=== PATIENT | female | born 1960 | race Hispanic/Latino ===

== ENCOUNTER 2019-03-13 18:28 | Inpatient (IN) | payer MEDICARE ==
[~2019-03-13] VITALS: Ht 152.4 cm; Wt 72.7 kg
[2019-03-13 18:54] VITALS: BP 138/89
[2019-03-13] MEDS ORDERED: TYLENOL PO STA (19:25)
[2019-03-13] MEDS ORDERED: MORPHINE SULFATE IV STA (19:25)
[2019-03-13] MEDS ORDERED: TYLENOL PO ONE (19:34)
[2019-03-13] MEDS ORDERED: NS 1000ML 1,000 ML ONE ×2 (19:34→22:01)
[2019-03-13] MEDS ORDERED: MORPHINE SULFATE ONE (19:35)
--- NOTE | 2019-03-13 19:35 | ER.PDOC ---
General Chief Complaint: Requesting Medical Care Stated Complaint: ALOC (POSSIBLE OVERDOSE) Time seen by MD: 19:31 Source: patient, family Exam Limitations: no limitations History of Present Illness Initial Comments AMS for 2-3 days, family thinks she might have overdosed on her medications. Character of AMS: confused (occasionally) Usually: orientedx3 Decreased Ability to Stand: weak Associated Symptoms: other (chronic left hip pain) Allergies: Coded Allergies: No Known Allergies (Unverified , 09/26/15) Home Meds Unable to Obtain Active Prescriptions or Reported Meds Past Medical History Medical History: cancer, diabetes, fibromyalgia, high cholesterol, hypertension, thyroid disease, other (chronic Migraine) Surgical History: other Social History Alcohol Use: none Drug Use: none Review of Systems Constitutional: no symptoms reported Respiratory: no symptoms reported Cardiovascular: no symptoms reported Gastrointestinal: no symptoms reported Genitourinary: no symptoms reported Musculoskeletal: see HPI Psychiatric/Neurological: see HPI All Other Systems: Reviewed and Negative Physical Exam General Appearance: alert, no distress HEENT: no apparent trauma Neuro/Psych: oriented x3, nml speech/cognition, nml mood/affect Cranial Nerves: nml as tested Peripheral Exam: motor nml, sensation nml, reflexes nml Neck: supple, non-tender, no carotid bruit Respiratory: no resp distress, breath sounds nml CVS: reg rate & rhythm, heart sounds nml Abdomen: non-tender, no organomegaly, no distention Skin: color nml, no rash, warm/dry Extremities: non-tender, nml ROM, no pedal edema Results/Orders Results/Orders Orders - GARRETT HIRSCH MD Cbc With Auto Diff (03/13/19:25) Comprehensive Metabolic Panel (03/13/19:25) Creatine Kinase (03/13/19:25) PT (03/13/19:25) Partial Thromboplastin Time. (03/13/19:25) Xr Chest 1v (03/13/19:) Ct Head Wo Contrast (03/13/19:25) Urinalysis (03/13/19:25) Ekg-Routine (03/13/19:) Troponin I (03/13/19:25) Arterial Blood Gas (03/13/19:) Lactic Acid(Ml) (03/13/19 19:25) Drug Screen Medical(Ml) (03/13/19 19:25) Influenza A&B (03/13/19 19:25) Acetaminophen (Tylenol) (03/13/19 19:25) Morphine Sulfate (Morphine Sulfate) (03/13/19 19:25) Blood Culture (03/13/19 19:25) Thyroid Stimulating Horm(Ml) (03/13/19 19:34) 0.9 % Sodium Chloride (Ns 1000ml) (03/13/19 19:34) Acetaminophen (Tylenol) (03/13/19 19:34) Morphine Sulfate (Morphine Sulfate) (03/13/19 19:35) 0.9 % Sodium Chloride (Ns 1000ml) (03/13/19 20:03) Urine Culture (03/13/19 19:42) 0.9 % Sodium Chloride (Ns 1000ml) (03/13/19 22:01) Cefepime Hcl (Maxipime) (03/13/19 22:03) Vital Signs Date Time Temp Pulse Resp B/P (MAP) Pulse Ox O2 Delivery O2 Flow Rate FiO2 03/13/19 18:54 100.6 113 18 93 03/13/19 18:54 100.6 113 18 138/89 (105) 93 Room Air Administered Medications Medications (Trade) Dose Ordered Sig/Ezra Route PRN Reason Start Time Stop Time Status Last Admin Dose Admin Acetaminophen (Tylenol) 1,000 mg STAT STAT PO 03/13/19 19:25 03/13/19 19:32 DC 03/13/19 20:02 1,000 MG Morphine Sulfate (Morphine Sulfate) 4 mg STAT STAT IV 03/13/19 19:25 03/13/19 19:32 DC 03/13/19 20:01 4 MG Sodium Chloride 2,150 ml @ 1,075 mls/hr OT STAT IV 03/13/19 20:03 03/13/19 22:02 DC 03/13/19 20:04 1,075 MLS/HR Laboratory Tests Test 03/13/19 19:10 03/13/19 19:42 03/13/19 19:58 03/13/19 20:00 White Blood Count 10.1 10^3/uL (4.5-11.0) Red Blood Count 4.50 10^6/uL (4.00-5.20) Hemoglobin 14.3 g/dL (12.0-15.0) Hematocrit 41.0 % (36.0-46.0) Mean Corpuscular Volume 91.1 fL (78-100) Mean Corpuscular Hemoglobin 31.8 pg (26-34) Mean Corpuscular Hemoglobin Concent 34.9 g/dL (33-37) Red Cell Distribution Width 13.0 % (11.5-14.5) Platelet Count 276 10^3/uL (150-400) Mean Platelet Volume 10.4 fL (7.8-11.0) Neutrophils (%) (Auto) 70.1 % (41.0-85.0) Lymphocytes (%) (Auto) 22.7 % (24.0-44.0) L Monocytes (%) (Auto) 5.6 % (5.0-12.0) Neutrophils # (Auto) 7.1 10^3/uL (1.8-7.7) Lymphocytes # (Auto) 2.3 10^3/uL (1.0-4.8) Monocytes # (Auto) 0.6 10^3/uL (0.3-0.8) Absolute Immature Granulocyte (auto 0.03 10^3 u/L (0-2) Absolute Eosinophils (auto) 0.1 10^3/uL (0.0-0.2) Immature Granulocytes % 0.30 % (0.00-0.50) Eosinophils % 0.9 % (0.0-5.0) Basophils % 0.4 % (0.0-0.2) H Basophils # 0.0 10^3/uL (0.0-0.1) Prothrombin Time 10.4 SEC (9.4-11.5) Prothrombin Time INR (Non-Therap) 1.0 Activated Partial Thromboplast Time 24.3 SEC (24.67-30.72) Sodium Level 137 mmol/L (132-145) Potassium Level 4.1 mmol/L (3.6-5.2) Chloride Level 99.0 mmol/L (96-109) Carbon Dioxide Level 32.7 mmol/L (20.0-32) H Anion Gap 9.4 Blood Urea Nitrogen 5 mg/dL (7-18) L Creatinine 0.75 mg/dL (0.59-1.40) Estimated GFR () 96.0 (>/=60) Est GFR (CKD-EPI)(Non-Afr Cameroonian) 79.4 (>/=60) BUN/Creatinine Ratio 6.0 Glucose Level 274 mg/dL (70-110) H Calcium Level 8.7 mg/dL (8.4-10.5) Total Bilirubin 0.3 mg/dL (0.2-1.0) Aspartate Amino Transferase (AST) 25 U/L (0-35) Alanine Aminotransferase (ALT) 20 U/L (12-78) Alkaline Phosphatase 91 U/L (50-136) Total Creatine Kinase 736 U/L (26-192) H Troponin I < 0.02 ng/mL (0.00-0.05) Total Protein 7.4 g/dL (6.4-8.2) Albumin 3.6 g/dL (3.4-5.0) Globulin 3.8 Thyroid Stimulating Hormone (TSH) 7.598 mIU/mL (0.358-3.740) Urine Collection Type CCMS Urine Color YELLOW (YELLOW) Urine Appearance SLIGHTLY CLOUDY (CLEAR) Urine Bilirubin NEGATIVE MG/DL (NEGATIVE) Urine Ketones NEGATIVE (NEGATIVE) Urine Specific [place] 1.015 (1.005-1.035) Urine pH 5 (5.0-6.0) Urine Protein NEGATIVE (NEGATIVE) Urine Urobilinogen NORMAL (NEGATIVE) Urine Nitrate POSITIVE (NEGATIVE) Urine Leukocyte Esterase NEGATIVE (NEGATIVE) Urine Blood NEGATIVE (NEGATIVE) Urine RBC 0-2 RBC/HPF (NONE SEEN) Urine WBC 5-10 WBC/HPF (0-2) H Urine Squamous Epithelial Cells FEW #/HPF (FEW) Urine Renal Epithelial Cells RARE #/HPF (NONE SEEN) Urine Bacteria MANY (NONE SEEN) H Urine Other RARE CLUE CELLS #/HPF Urine Glucose 50 (NEGATIVE) H Urine Opiates Screen NEGATIVE (c/o300ng/mL) Urine Methadone Screen NEGATIVE (c/o300ng/mL) Urine Barbiturates Screen NEGATIVE (c/o200ng/mL) Urine Phencyclidine Screen NEGATIVE (c/o 25ng/mL) Ur Amphetamine/Methamphetamine NEGATIVE (io3274ac/mL) Urine MDMA Screen (Ecstasy) NEGATIVE (c/o300ng/mL) Urine Benzodiazepines Screen PRESUMPTIVE POSITIVE Urine Cocaine Metabolite Screen NEGATIVE (c/o300ng/mL) Ur Tetrahydrocannabinol (THC) Scrn NEGATIVE (c/o 50ng/mL) Influenza Type A Antigen NEGATIVE (NEG) Influenza B Immunofluorescence NEGATIVE (NEG) Blood Gas Sample Site ABG Blood pH 7.394 (7.350-7.450) Blood Gas PCO2 53.3 mmHg (35.0-45.0) H Blood Gas PO2 44.7 mmHg (80.0-100.0) L Blood Gas HCO3 31.8 mmol/L (22.0-26.0) H Blood Gas Base Excess 5.5 mmol/L (-2.0-2.0) H [place] Test POSITIVE Arterial Blood Oxygen Saturation 84.7 % (94.0-97.00) L Deoxyhemoglobin 14.0 % (0.0-5.0) H Carboxyhemoglobin 8.6 % (0.0-3.9) H Methemoglobin 0.1 % (0.00-5.0) Total Hemoglobin 13.8 % (12.0-17.8) Total Oxygen Concentration 15.0 % (13.5-17.5) Blood Gas Temperature 37 FiO2 21 % (20-101) Total Carbon Dioxide 33.5 mmol/L (23-27) H Lactic Acid Level 1.5 mmol/L (0.50-2.00) EKG/XRAY/CT/US EKG: NSR XRAY: chest (No active disease) CT Comments: Nothing acute intracranially Departure Time of Disposition: 22:07 Disposition: 09 ADMITTED INPATIENT Impression: Primary Impression: Respiratory failure with hypoxia Additional Impressions: UTI (urinary tract infection) Rhabdomyolysis COPD (chronic obstructive pulmonary disease) Condition: Stable Referrals: VIDHI GALLO MD (PCP) PRIMARY CARE PROVIDER Scripts Unable to Obtain Active Prescriptions or Reported Meds Comments Admitted to Dr. Patricia Duration or Time Spent with Pa: 60 mins Problem Qualifiers Primary Impression: Respiratory failure with hypoxia Chronicity: acute Qualified Codes: J96.01 - Acute respiratory failure with hypoxia Additional Impressions: UTI (urinary tract infection) Urinary tract infection type: site unspecified Hematuria presence: without hematuria Qualified Codes: N39.0 - Urinary tract infection, site not specified Rhabdomyolysis Rhabdomyolysis type: non-traumatic Qualified Codes: M62.82 - Rhabdomyolysis COPD (chronic obstructive pulmonary disease) COPD type: unspecified COPD Qualified Codes: J44.9 - Chronic obstructive pulmonary disease, unspecified GARRETT HIRSCH MD Mar 13, 2019 19:35
[2019-03-13 19:41] LABS: BASOPHIL % 0.4 % (0.0-0.2); EOSINOPHIL # 0.1 10^3/uL (0.0-0.2); EOSINOPHIL % 0.9 % (0.0-5.0); LYMPHOCYTES # 2.3 10^3/uL (1.0-4.8); LYMPHOCYTES % 22.7 % (24.0-44.0); MEAN CORP HGB 31.8 pg (26-34); MONOCYTES # 0.6 10^3/uL (0.3-0.8); MONOCYTES % 5.6 % (5.0-12.0); NEUTROPHIL # 7.1 10^3/uL (1.8-7.7); NEUTROPHILS % 70.1 % (41.0-85.0)
--- NOTE | 2019-03-13 19:57 | DIREP ---
PROCEDURE:CT HEAD OR BRAIN W/O CONTRAST COMPARISON:[facility], CT, CT-BRAIN WO CONTRAST, 11/27/2012, 11:45 AM. INDICATIONS:AMS TECHNIQUE:CT images were created without intravenous contrast. FINDINGS: VENTRICLES:The ventricles are normal in size and configuration. CEREBRUM:Normal cerebral morphology with appropriate culp white matter differentiation. CEREBELLUM:Negative. BRAINSTEM:Negative. BASAL CISTERNS:Negative. HEMORRHAGE:No MASS LESION:No ACUTE INFARCT:No SKULL:Normal. SINUSES:Normal. OTHER:None CONCLUSION:No acute intracranial abnormality Dictated by: Graeme Pelayo DO on 03/13/2019 at 07:52 PM
[2019-03-13 19:59] LABS: ALANINE AMINOTRANSFERASE(ML) 20 U/L (12-78); ALKALINE PHOSPHATASE 91 U/L (50-136); ASPARTATE AMINO TRANSFERASE 25 U/L (0-35); CALCIUM 8.7 mg/dL (8.4-10.5); CARBON DIOXIDE 32.7 mmol/L (20.0-32); GLUCOSE 274 mg/dL (70-110)
--- NOTE | 2019-03-13 20:02 | DIREP ---
PROCEDURE:CHEST 1 VIEW COMPARISON:[facility], CR, XRAY CHEST SINGLE VW, 12/30/2017, 02:34 PM. INDICATIONS:AMS FINDINGS: LUNGS/PLEURA:No significant pulmonary parenchymal abnormalities. No effusions. VASCULATURE:Normal. Unremarkable pulmonary vasculature. CARDIAC:Normal. No cardiac silhouette abnormality or cardiomegaly. MEDIASTINUM:Normal. No visible mass or adenopathy. BONES:Normal. No fracture or visible bony lesion. OTHER:Negative. CONCLUSION:No acute airspace disease Dictated by: Graeme Pelayo DO on 03/13/2019 at 08:00 PM
[2019-03-13] MEDS ORDERED: NS IV STA (20:03)
--- NOTE | 2019-03-13 20:04 | PCM.EKG ---
[facility] Test Date: 2019-03-13 Test Time: 20:00:21 Pat Name: AGNIESZKA COLLINS Department: Room: 312 Gender: F Knocker Out: MAYITO : 1960 Requested By: GARRETT HIRSCH Order Number: [id number] Reading MD: Garrett HIRSCH Measurements Intervals [place] Rate: 98 P: 46 PA: 166 QRS: -25 QRSD: 70 T: 31 QT: 361 QTc: 461 Interpretive Statements Sinus rhythm Probable left atrial enlargement Inferior infarct, old Consider anterior infarct Compared to ECG 12/30/2017 14:56:34 Myocardial infarct finding now present Electronically Signed On 03-16-2019 23:06:46 [employer] by Garrett HIRSCH Please click the below link to view image of tracing.
[2019-03-13 20:11] LABS: BILIRUBIN,URINE NEGATIVE (NEGATIVE); UROBILINOGEN,URINE NORMAL (NEGATIVE)
[2019-03-13 20:12] LABS: ABG PCO2 53.3 mmHg (35.0-45.0); ABG PH 7.394 (7.350-7.450); BE(B) 5.5 mmol/L (-2.0-2.0); HCO3act 31.8 mmol/L (22.0-26.0); pO2 44.7 mmHg (80.0-100.0)
[2019-03-13 20:26] LABS: APPEARANCE,URINE SLIGHTLY CLOUDY (CLEAR); UA COLOR YELLOW (YELLOW)
--- NOTE | 2019-03-13 21:56 | NUR ---
DR MERCEDES TUCKER ON PHONE WITH DR LONG
[2019-03-13] MEDS ORDERED: NS 100ML 100 ML IV ONE ×2 (22:02→23:31)
[2019-03-13] MEDS ORDERED: MAXIPIME 1 GM in NS 100ML 100 ML IV STA (22:03)
[2019-03-13 22:07] VITALS: BP 106/61
[2019-03-13] MEDS ORDERED: TYLENOL PO PRN (23:30)
[2019-03-14] VITALS (74 sets, daily range): BP systolic 106–180; BP diastolic 21–120
[2019-03-14] MEDS ORDERED: SOLU-MEDROL IV STA
[2019-03-14] MEDS ORDERED: DEXTROSE 50%-WATER SYRINGE IV PRN
[2019-03-14] MEDS ORDERED: LANTUS SQ STA (00:02)
--- NOTE | 2019-03-14 00:15 | PCM.HP ---
History of Present Illness Reason for Visit: AMS History of Present Illness Patient is a 59 F PMH of Lupus, COPD, Hypothyroidism, HTN, DM with Gastroparesis, Chronic Migraines, Fibromyalgia, VALERIE, and Chronic pain who was brought to ER from home for AMS. Patient family felt she was behaving weird and was forgetful today. They were afraid patient had took too many of her medications. Patient is polypharmacy and is over 12 medications at home. Patient is alert and oriented x 3 during my evaluation. She answers questions appropriately. She was found to have severe UTI and she meets Sepsis criteria. Patient was tachycardic and febrile. She was also found to be hypoxic. CXR/ABG reviewed. Patient is in acute on Chronic Hypercapnic respiratory failure. She was started on IVF and IV abx in ER. Blood/Urine cx ordered. Patient denies complaints during my evaluation. No chest pain, no dyspnea (per patient), no nausea, no vomiting, no chills. I reviewed all labs and imaging. I discussed plan of care with patient and she verbalized understanding/agreement. Family present during my evaluation. Past Medical History Cardiac: HTN, Hyperlipidemia Pulmonary: COPD, Other (VALERIE) FULFILLMENT SPECIALIST: Migraine GI: GERD, Other (Gastroparesis) Rheumatologic: Fibromyalgia, Other (Lupus) Endocrine: Diabetes, Hypothyroidism Past Surgical History: Other (Oopherectomy bilaterally 2/2 tubal pregnancies, Nerve stimulator placement followed by removal, thyroidectomy) Past Social History Smoke: <1 pack per day Alcohol: none Drugs: None Lives: with Family Travel Hx EBOLA RISK:Travel to/contact w: No Is pt experiencing any Ebola s: No Review of Systems Constitutional: Fever; No: Chills Eyes: No: Conjunctivae inflammation, Eyelid inflammation ENT: No: Nose discharge, Nose congestion Respiratory: Cough, Wheezing; No: Shortness of breath, SOB with excertion Cardiovascular: No: Chest Pain, Palpitations, Edema, Lt Headedness Gastrointestinal: No: Nausea, Vomiting, Abdominal Pain Genitourinary: No Incontinence, No Retention Musculoskeletal: back pain; No: neck pain Skin: No: Rash, Lesions, Jaundice, Bruising Neurological: No: Weakness, Numbness, Incoordination, Change in speech, Confusion, Seizures Allergies: Coded Allergies: No Known Allergies (Unverified , 09/26/15) Unable to Obtain Active Prescriptions or Reported Meds VTE VTE Risk Score VTE Risk: Score 0-1 = Low Risk (Aggressive mobilization; early ambulation; no VTE prophylaxis required) Score 2: Moderate Risk (Intermittent/Pneumatic Compression Device OR Lovenox/Heparin/Coumadin) Score 3-4: High Risk (Intermittent/Pneumatic Compression Device AND Lovenox/Heparin/Coumadin) Score > or =5: Highest Risk (Intermittent/Pneumatic Compression Device AND Lovenox/Heparin/Coumadin) Exam Vital Signs Vital Signs Date Time Temp Pulse Resp B/P (MAP) Pulse Ox O2 Delivery O2 Flow Rate FiO2 03/13/19 22:07 92 18 106/61 (76) 95 Room Air 03/13/19 18:54 100.6 General Appearance: Alert, Oriented X3, Cooperative, No acute distress HEENT: Atraumatic, PERRLA, EOMI Respiratory: Other (diffuse wheezing, decreased aeration) Cardiovascular: Normal S1, Normal S2, No murmurs Abdominal: Normal bowel sounds, Soft, No tenderness Extremities: No edema, Normal pulses, No tenderness/swelling Skin: No rash, No breakdown, No lesions Neuro: Normal speech, Strength at 5/5 X4 ext, Normal tone, Sensation intact, Cranial nerves 3-12 NL Psych/Mental Status: Mental status NL, Mood NL Assessment/Plan Assessment/Plan Assessment/Plan Patient is a 59 F PMH of Lupus, COPD, Hypothyroidism, HTN, DM with Gastroparesis, Chronic Migraines, Fibromyalgia, VALERIE, and Chronic pain who was brought to ER from home for AMS. Patient History: Patient reports no known family medical history. Plan 1. Urosepsis: patient lactic acid 1.5 but she is chronic retainer of Bicarb 2/2 lung disease so number less dependable. Cont IVF, IV abx. Blood/Urine cx ordered. Monitor urine output. 2. Acute on Chronic Hypercapnic respiratory failure/COPD exacerbation/VALERIE: CPAP @ night, cont o2 support PRN, nebs, IV steroids, IS. CXR reviewed and negative for pneumonia. 3. DM with Gastroparesis: Lantus ordered for expected Hyperglycemia from steroid use and uncontrolled DM. PRN antiemetics. 4. Hypothyroidism: cont Synthroid 5. Chronic Migraines: resume home medications when patient medically stable 6. Lupus: hold home meds 2/2 sepsis 7. HTN: hold ARB 2/2 sepsis. Monitor BP closely 8. Fibromyalgia: cont home meds, Morphine PRN. 9. PPx: PPI, Lovenox YESICA LONG MD Mar 14, 2019 00:15
[2019-03-14] MEDS ORDERED: ZOFRAN 4 MG/2 ML VIAL IV PRN (00:30)
[2019-03-14] MEDS ORDERED: ASPI-667 PO (00:33)
[2019-03-14] MEDS ORDERED: HYDR200T5 PO (00:33)
[2019-03-14] MEDS ORDERED: TEMA30CA PO (00:33)
[2019-03-14] MEDS ORDERED: ROSU20TA2 PO (00:33)
[2019-03-14] MEDS ORDERED: DICL100G29 TP (00:33)
[2019-03-14] MEDS ORDERED: NABU750T PO ×2 (00:33)
[2019-03-14] MEDS ORDERED: METH500T7 PO (00:33)
[2019-03-14] MEDS ORDERED: ONDA4TAB12 PO (00:33)
[2019-03-14] MEDS ORDERED: NALO4SPR NS (00:33)
[2019-03-14] MEDS ORDERED: ESCI20TA PO (00:33)
[2019-03-14] MEDS ORDERED: FLUT16SP (00:33)
[2019-03-14] MEDS ORDERED: METF500T17 PO (00:33)
[2019-03-14] MEDS ORDERED: PREG150C PO (00:33)
[2019-03-14] MEDS ORDERED: FOLI20CA PO (00:33)
[2019-03-14] MEDS ORDERED: LOSA50TA14 PO (00:33)
[2019-03-14] MEDS ORDERED: METH25VI22 IJ (00:33)
[2019-03-14] MEDS ORDERED: PRAM0.255 PO (00:33)
[2019-03-14] MEDS ORDERED: PANT40TA5 PO (00:33)
[2019-03-14] MEDS ORDERED: LIOT25TA4 PO (00:33)
[2019-03-14] MEDS ORDERED: DICY20TA3 PO (00:33)
[2019-03-14] MEDS ORDERED: CLOB50FO TP (00:33)
[2019-03-14] MEDS ORDERED: METO10TA83 PO (00:33)
[2019-03-14] MEDS ORDERED: LOVENOX SQ ONE (00:54)
[2019-03-14] MEDS ORDERED: SOLU-MEDROL ONE ×2 (00:54→05:42)
[2019-03-14] MEDS ORDERED: NS 1000ML/KCL 20MEQ 1,000 ML IV ONE (00:54)
[2019-03-14] MEDS ORDERED: LANTUS SQ ONE (00:55)
[2019-03-14] MEDS: LOVENOX SQ SCH (01:06)
--- NOTE | 2019-03-14 01:08 | NUR ---
TELEPHONE REPORT RECEIVED FROM VANIA HERRING.
--- NOTE | 2019-03-14 01:17 | NUR ---
ARRIVAL: PT ARRIVED FROM ER VIA STRETCHER ACCOMPANIED BY VANIA HERRING AND PT FAMILY MEMBERS. PT ABLE TO AMBULATE FROM ER STRETCHER TO ICU BED WITH STANDBY ASSISTANCE. PT ORIENTED TO ICU ENVIRONMENT WITH UNDERSTANDING AND CONNECTED TO HEART MONITOR, NIBP AND PULSE OX. PT IS ON OXYGEN VIA NASAL CANNULA @ 4LPM. ALL VSS AND WNL. MAXIPIME AND SECOND NS BOLUS INFUSING TO 20G IV SITE IN LT AC. NO SWELLING OR REDNESS NOTED. SITE IS PATENT AND FLUSHES WELL. PT DENIES ANY PAIN OR NEEDS AT THIS TIME. CALL LIGHT AND TABLE WITHIN REACH. BED IN LOW POSITION, LOCKED, HOB ELEVATED AND SIDE RAILS UP X2. WILL CONTINUE TO MONITOR.
[2019-03-14] MEDS: NS 1000ML/KCL 20MEQ 1,000 ML IV SCH ×2 (01:36→13:49)
--- NOTE | 2019-03-14 02:35 | NUR ---
O2 DECREASED TO 2LPM. O2 SATS 97%. WILL CONTINUE TO MONITOR.
[2019-03-14] MEDS ORDERED: DUO 0.5-3(2.5) MG/3 ML IH ONE ×3 (03:06→21:06)
[2019-03-14] MEDS: DUO 0.5-3(2.5) MG/3 ML IH SCH ×4 (03:17→21:10)
--- NOTE | 2019-03-14 03:30 | NUR ---
RT AT BEDSIDE TO PLACE PT ON CPAP
[2019-03-14] MEDS: MORPHINE SULFATE IV PRN ×4 (03:44→20:30)
--- NOTE | 2019-03-14 05:30 | NUR ---
BSC: PT ASSISTED TO AMBULATE TO BSC AND VOIDED 600ML OF YELLOW URINE. PT ASSISTED BACK TO BED. WILL CONTINUE TO MONITOR.
[2019-03-14 05:47] LABS: BASOPHIL % 0.2 % (0.0-0.2); EOSINOPHIL % 0.2 % (0.0-5.0); LYMPHOCYTES # 1.2 10^3/uL (1.0-4.8); LYMPHOCYTES % 12.1 % (24.0-44.0); MEAN CORP HGB 31.9 pg (26-34); MONOCYTES # 0.2 10^3/uL (0.3-0.8); MONOCYTES % 1.9 % (5.0-12.0); NEUTROPHIL # 8.5 10^3/uL (1.8-7.7); NEUTROPHILS % 85.4 % (41.0-85.0); RED CELL DISTRIBUTION WIDTH 12.8 % (11.5-14.5)
[2019-03-14] MEDS: SOLU-MEDROL IV SCH ×3 (05:52→22:29)
[2019-03-14 06:04] LABS: CALCIUM 7.8 mg/dL (8.4-10.5)
--- NOTE | 2019-03-14 06:56 | NUR ---
REPORT TO ONCOMING SHIFT. PT CARE RELINQUISHED.
[2019-03-14] MEDS: HUMULIN R SQ SCH ×4 (07:57→20:33)
[2019-03-14] MEDS: PROTONIX PO SCH (08:02)
[2019-03-14] MEDS ORDERED: METF10007 PO (09:26)
--- NOTE | 2019-03-14 09:33 | PRM.PN ---
Subjective Subjective Date: Mar 14, 2019 Time: 09:25 Subjective Patient feeling better. Did not require pressor support overnight. Labs reviewed. Transfer to medical floor today. Patient History: Patient reports no known family medical history. VTE VTE Risk Total Score: >5 VTE Risk Score VTE Risk: Score 0-1 = Low Risk (Aggressive mobilization; early ambulation; no VTE prophylaxis required) Score 2: Moderate Risk (Intermittent/Pneumatic Compression Device OR Lovenox/Heparin/Coumadin) Score 3-4: High Risk (Intermittent/Pneumatic Compression Device AND Lovenox/Heparin/Coumadin) Score > or =5: Highest Risk (Intermittent/Pneumatic Compression Device AND Lovenox/Heparin/Coumadin) Review of Systems Allergies: Coded Allergies: No Known Allergies (Unverified , 09/26/15) Scheduled Aspirin (Aspirin), 1 TAB PO DAILY, (Reported) Clobetasol Propionate (Clobetasol Propionate), 50 GM TP PRN, (Reported) Diclofenac Sodium (Diclofenac Sodium), 100 GM TP PRN, (Reported) Dicyclomine Hcl (Dicyclomine Hcl), 20 MG PO DAILY24, (Reported) Escitalopram Oxalate (Escitalopram Oxalate), 1 TAB PO DAILY, (Reported) Fluticasone Propionate (Fluticasone Propionate), 2 SPR NA DAILY, (Reported) Folic Acid (Folic Acid), 20 MG PO DAILY24, (Reported) Hydroxychloroquine Sulfate (Hydroxychloroquine Sulfate), 200 MG PO DAILY24, (Reported) Liothyronine Sodium (Liothyronine Sodium), 25 MCG PO DAILY24, (Reported) Losartan Potassium (Losartan Potassium), 50 MG PO DAILY24, (Reported) Metformin Hcl (Metformin Hcl), 1 TAB PO BID, (Reported) Methocarbamol (Methocarbamol), 500 MG PO PRN, (Reported) Methotrexate Sodium (Methotrexate), 25 MG IJ Q, (Reported) Metoclopramide Hcl (Reglan), 10 MG PO DAILY24, (Reported) Nabumetone (Nabumetone), 750 MG PO BID, (Reported) Nabumetone (Nabumetone), 750 MG PO DAILY24, (Reported) Naloxone HCl (Narcan), 4 MG NS PRN, (Reported) Ondansetron Hcl (Ondansetron Hcl), 4 MG PO Q4, (Reported) Pantoprazole Sodium (Pantoprazole Sodium), 40 MG PO DAILY24, (Reported) Pramipexole Di-Hcl (Mirapex), 0.25 MG PO DAILY24, (Reported) Pregabalin (Lyrica), 150 MG PO DAILY24, (Reported) Rosuvastatin 20MG (Crestor 20MG), 20 MG PO DAILY24, (Reported) Temazepam (Temazepam), 30 MG PO NOCTE, (Reported) Objective Vitals and I/O Vital Sign - Last 24 Hours 03/13/19 03/13/19 03/13/19 03/14/19 18:54 18:54 22:07 01:34 Temp 100.6 100.6 98.8 Pulse 113 113 92 86 Resp 18 18 18 19 B/P (MAP) 138/89 (105) 106/61 (76) 108/28 (54) Pulse Ox 93 93 95 92 O2 Delivery Room Air Room Air 03/14/19 03/14/19 03/14/19 03/14/19 01:34 01:35 01:45 02:00 Pulse 85 82 79 Resp 14 14 17 B/P (MAP) 106/44 (64) 115/46 (69) 116/59 (78) Pulse Ox 96 98 98 O2 Delivery Nasal Cannula O2 Flow Rate 4.00 03/14/19 03/14/19 03/14/19 03/14/19 02:15 02:30 02:46 03:00 Pulse 77 87 82 85 Resp 10 75 10 9 B/P (MAP) 109/61 (77) 116/75 (89) 136/81 (99) 126/67 (86) Pulse Ox 98 100 03/14/19 03/14/19 03/14/19 03/14/19 03:15 03:20 03:23 03:23 Pulse 88 88 88 86 Resp 12 13 13 14 B/P (MAP) 123/71 (88) Pulse Ox 93 92 93 O2 Delivery Nasal Cannula O2 Flow Rate 2.00 03/14/19 03/14/19 03/14/19 03/14/19 03:25 03:30 03:45 04:00 Temp 98.6 Pulse 91 88 92 89 Resp 8 22 14 B/P (MAP) 126/67 (86) 137/80 (99) 136/72 (93) Pulse Ox 94 93 94 O2 Delivery CPAP FiO2 30 03/14/19 03/14/19 03/14/19 03/14/19 04:15 04:22 04:22 04:30 Pulse 85 84 Resp 12 B/P (MAP) 135/74 (94) 136/72 (93) Pulse Ox 95 93 95 O2 Delivery C-Pap 03/14/19 03/14/19 03/14/19 03/14/19 04:45 05:00 05:15 05:30 Pulse 83 85 86 84 Resp 10 B/P (MAP) 130/76 (94) 133/78 (96) 139/79 (99) 139/76 (97) Pulse Ox 95 95 03/14/19 03/14/19 03/14/19 03/14/19 05:45 06:00 06:15 06:30 Pulse 83 94 90 87 Resp 5 12 12 B/P (MAP) 142/82 (102) 131/65 (87) 119/50 (73) 118/57 (77) Pulse Ox 96 95 03/14/19 03/14/19 03/14/19 03/14/19 06:45 07:00 07:15 07:30 Pulse 85 84 85 83 Resp 10 13 9 9 B/P (MAP) 112/59 (76) 114/49 (70) 110/58 (75) 116/49 (71) Pulse Ox 95 95 95 03/14/19 03/14/19 03/14/19 03/14/19 07:45 08:00 08:15 08:18 Temp 98.8 Pulse 83 82 81 Resp 11 12 10 B/P (MAP) 118/57 (77) 130/61 (84) 125/65 (85) Pulse Ox 95 96 O2 Delivery Nasal Cannula O2 Flow Rate 2.00 03/14/19 03/14/19 03/14/19 08:40 08:45 09:00 Pulse 89 89 89 Resp 17 17 17 Pulse Ox 95 95 95 O2 Delivery Nasal Cannula O2 Flow Rate 2.00 Intake and Output 03/13/19 03/13/19 03/14/19 15:00 23:00 07:00 Intake Total 917 ml Output Total 600 ml Balance 317 ml General: Alert, Oriented X3, Cooperative, No acute distress HEENT: Atraumatic, PERRLA, EOMI Neck: Supple, No JVD Lungs: Other (diffuse wheezing, decreased aeration) Heart: Normal S1, Normal S2, No murmurs Abdomen: Normal bowel sounds, Soft, No tenderness Extremities: No edema, Normal pulses, No tenderness/swelling Skin: No rashes, No breakdown, No significant lesion Neuro: Normal speech, Strength at 5/5 X4 ext, Normal tone, Sensation intact, Cranial nerves 3-12 NL Psych/Mental Status: Mental status NL, Mood NL All Results(Lab/Rad) Laboratory Tests Test 03/13/19 19:10 03/13/19 19:42 03/13/19 19:58 03/13/19 20:00 White Blood Count 10.1 10^3/uL Red Blood Count 4.50 10^6/uL Hemoglobin 14.3 g/dL Hematocrit 41.0 % Mean Corpuscular Volume 91.1 fL Mean Corpuscular Hemoglobin 31.8 pg Mean Corpuscular Hemoglobin Concent 34.9 g/dL Red Cell Distribution Width 13.0 % Platelet Count 276 10^3/uL Mean Platelet Volume 10.4 fL Neutrophils (%) (Auto) 70.1 % Lymphocytes (%) (Auto) 22.7 % Monocytes (%) (Auto) 5.6 % Neutrophils # (Auto) 7.1 10^3/uL Lymphocytes # (Auto) 2.3 10^3/uL Monocytes # (Auto) 0.6 10^3/uL Absolute Immature Granulocyte (auto 0.03 10^3 u/L Absolute Eosinophils (auto) 0.1 10^3/uL Immature Granulocytes % 0.30 % Eosinophils % 0.9 % Basophils % 0.4 % Basophils # 0.0 10^3/uL Prothrombin Time 10.4 SEC Prothrombin Time INR (Non-Therap) 1.0 Activated Partial Thromboplast Time 24.3 SEC Sodium Level 137 mmol/L Potassium Level 4.1 mmol/L Chloride Level 99.0 mmol/L Carbon Dioxide Level 32.7 mmol/L Anion Gap 9.4 Blood Urea Nitrogen 5 mg/dL Creatinine 0.75 mg/dL Estimated GFR () 96.0 Est GFR (CKD-EPI)(Non-Afr [place]) 79.4 BUN/Creatinine Ratio 6.0 Glucose Level 274 mg/dL Calcium Level 8.7 mg/dL Total Bilirubin 0.3 mg/dL Aspartate Amino Transf (AST/SGOT) 25 U/L Alanine Aminotransferase (ALT/SGPT) 20 U/L Alkaline Phosphatase 91 U/L Total Creatine Kinase 736 U/L Troponin I < 0.02 ng/mL Total Protein 7.4 g/dL Albumin 3.6 g/dL Globulin 3.8 Thyroid Stimulating Hormone (TSH) 7.598 mIU/mL Urine Collection Type CCMS Urine Color YELLOW Urine Appearance SLIGHTLY CLOUDY Urine Bilirubin NEGATIVE MG/DL Urine Ketones NEGATIVE Urine Specific [place] 1.015 Urine pH 5 Urine Protein NEGATIVE Urine Urobilinogen NORMAL Urine Nitrate POSITIVE Urine Leukocyte Esterase NEGATIVE Urine Blood NEGATIVE Urine RBC 0-2 RBC/HPF Urine WBC 5-10 WBC/HPF Urine Squamous Epithelial Cells FEW #/HPF Urine Renal Epithelial Cells RARE #/HPF Urine Bacteria MANY Urine Other RARE CLUE CELLS #/HPF Urine Glucose 50 Urine Opiates Screen NEGATIVE Urine Methadone Screen NEGATIVE Urine Barbiturates Screen NEGATIVE Urine Phencyclidine Screen NEGATIVE Ur Amphetamine/Methamphetamine NEGATIVE Urine MDMA Screen (Ecstasy) NEGATIVE Urine Benzodiazepines Screen PRESUMPTIVE POSITIVE Urine Cocaine Metabolite Screen NEGATIVE Ur Tetrahydrocannabinol (THC) Scrn NEGATIVE Influenza Type A Antigen NEGATIVE Influenza B Immunofluorescence NEGATIVE Blood Gas Sample Site ABG Blood Gas pH 7.394 Blood Gas PCO2 53.3 mmHg Blood Gas PO2 44.7 mmHg Blood Gas HCO3 31.8 mmol/L Blood Gas Base Excess 5.5 mmol/L [place] Test POSITIVE Arterial Blood Oxygen Saturation 84.7 % Deoxyhemoglobin 14.0 % Carboxyhemoglobin 8.6 % Methemoglobin 0.1 % Total Hemoglobin 13.8 % Total Oxygen Concentration 15.0 % Blood Gas Temperature 37 FiO2 21 % Total Carbon Dioxide 33.5 mmol/L Lactic Acid Level 1.5 mmol/L Test 03/14/19 00:43 03/14/19 02:05 03/14/19 05:02 Bedside Glucose 165 162 White Blood Count 9.9 10^3/uL Red Blood Count 4.01 10^6/uL Hemoglobin 12.8 g/dL Hematocrit 36.8 % Mean Corpuscular Volume 91.8 fL Mean Corpuscular Hemoglobin 31.9 pg Mean Corpuscular Hemoglobin Concent 34.8 g/dL Red Cell Distribution Width 12.8 % Platelet Count 236 10^3/uL Mean Platelet Volume 10.4 fL Neutrophils (%) (Auto) 85.4 % Lymphocytes (%) (Auto) 12.1 % Monocytes (%) (Auto) 1.9 % Neutrophils # (Auto) 8.5 10^3/uL Lymphocytes # (Auto) 1.2 10^3/uL Monocytes # (Auto) 0.2 10^3/uL Absolute Immature Granulocyte (auto 0.02 10^3 u/L Absolute Eosinophils (auto) 0.0 10^3/uL Immature Granulocytes % 0.20 % Eosinophils % 0.2 % Basophils % 0.2 % Basophils # 0.0 10^3/uL Sodium Level 141 mmol/L Potassium Level 4.1 mmol/L Chloride Level 103.0 mmol/L Carbon Dioxide Level 31.0 mmol/L Anion Gap 11.1 Blood Urea Nitrogen 6 mg/dL Creatinine 0.52 mg/dL Estimated GFR () 146.6 Est GFR (CKD-EPI)(Non-Afr [place]) 121.1 BUN/Creatinine Ratio 11.0 Glucose Level 264 mg/dL Calcium Level 7.8 mg/dL Total Bilirubin 0.3 mg/dL Aspartate Amino Transf (AST/SGOT) 20 U/L Alanine Aminotransferase (ALT/SGPT) 19 U/L Alkaline Phosphatase 75 U/L Total Protein 6.6 g/dL Albumin 3.2 g/dL Globulin 3.4 Current Medications Medications (Trade) Dose Ordered Sig/Ezra Route PRN Reason Start Time Stop Time Status Last Admin Dose Admin Acetaminophen (Tylenol) 1,000 mg STAT STAT PO 03/13/19 19:25 03/13/19 19:32 DC 03/13/19 20:02 Morphine Sulfate (Morphine Sulfate) 4 mg STAT STAT IV 03/13/19 19:25 03/13/19 19:32 DC 03/13/19 20:01 Sodium Chloride 1,000 ml @ ud STK-MED ONCE .ROUTE 03/13/19 19:34 03/13/19 19:36 DC Acetaminophen (Tylenol) 500 mg STK-MED ONCE PO 03/13/19 19:34 03/13/19 19:36 DC Morphine Sulfate (Morphine Sulfate) 4 mg STK-MED ONCE .ROUTE 03/13/19 19:35 03/13/19 19:37 DC Sodium Chloride 2,150 ml @ 1,075 mls/hr OT STAT IV 03/13/19 20:03 03/13/19 22:02 DC 03/13/19 20:04 Sodium Chloride 1,000 ml @ ud STK-MED ONCE .ROUTE 03/13/19 22:01 03/13/19 22:03 DC Cefepime HCl 1 gm/ Sodium Chloride 100 ml @ 100 mls/hr STAT STAT IV 03/13/19 22:03 03/13/19 23:02 DC 03/14/19 00:36 Sodium Chloride 100 ml @ ud STK-MED ONCE IV 03/13/19 22:02 03/13/19 22:04 DC Pantoprazole Sodium (Protonix) 40 mg DAILY PO 03/14/19 09:00 04/13/19 08:59 03/14/19 08:02 Acetaminophen (Tylenol) 650 mg Q6HR PRN PO FEVER 03/13/19 23:30 04/12/19 23:29 Morphine Sulfate (Morphine Sulfate) 2 mg Q4H PRN IV PAIN 7 - 10 03/13/19 23:30 04/12/19 23:29 03/14/19 08:39 Sodium Chloride 100 ml @ STK-MED ONCE IV 03/13/19 23:31 03/13/19 23:33 DC Insulin Human Regular (Humulin R) Give 30 minutes before meal ACHS SQ 03/14/19 07:30 04/13/19 07:29 03/14/19 07:57 Dextrose (Dextrose 50%-Water Syringe) 25 ml STAT PRN IV HYPOGLYCEMIA 03/14/19 00:00 04/13/19 00:00 Methylprednisolone Sodium Succinate (Solu-Medrol) 80 mg STAT STAT IV 03/14/19 00:00 03/14/19 03:54 DC 03/14/19 01:04 Methylprednisolone Sodium Succinate (Solu-Medrol) 40 mg Q8HR IV 03/14/19 06:00 04/13/19 05:59 03/14/19 05:52 Insulin Glargine (Lantus) 20 unit STAT STAT SQ 03/14/19 00:02 03/14/19 03:54 DC 03/14/19 01:05 Ondansetron HCl (Zofran 4 Mg/2 ml Vial) 4 mg Q4H PRN IV NAUSEA / VOMITING 03/14/19 00:30 04/13/19 00:29 Potassium Chloride/Sodium Chloride 1,000 ml @ 50 mls/hr Q20H IV 03/14/19 00:30 03/14/19 01:36 Albuterol/ Ipratropium (Duo 0.5-3(2.5) Mg/3 ml) 3 ml RTQ6H IH 03/14/19 00:30 04/13/19 00:29 03/14/19 08:44 Enoxaparin Sodium (Lovenox) 40 mg Q24HRS SQ 03/14/19 00:30 04/13/19 00:29 03/14/19 01:06 Ceftriaxone Sodium 1 gm/ Sodium Chloride 100 ml @ 100 mls/hr BID IV 03/14/19 09:30 04/13/19 09:29 Course Sepsis Screening Results: Posi: POSITIVE Sepsis Qualifier/Stage: SEPSIS RISK Duration or Total Time Spent w: 60 mins Vitals & review Data Vital Sign - Last 24 Hours 03/13/19 03/13/19 03/13/19 03/14/19 18:54 18:54 22:07 01:34 Temp 100.6 100.6 98.8 Pulse 113 113 92 86 Resp 18 18 18 19 B/P (MAP) 138/89 (105) 106/61 (76) 108/28 (54) Pulse Ox 93 93 95 92 O2 Delivery Room Air Room Air 03/14/19 03/14/19 03/14/19 03/14/19 01:34 01:35 01:45 02:00 Pulse 85 82 79 Resp 14 14 17 B/P (MAP) 106/44 (64) 115/46 (69) 116/59 (78) Pulse Ox 96 98 98 O2 Delivery Nasal Cannula O2 Flow Rate 4.00 03/14/19 03/14/19 03/14/19 03/14/19 02:15 02:30 02:46 03:00 Pulse 77 87 82 85 Resp 10 75 10 9 B/P (MAP) 109/61 (77) 116/75 (89) 136/81 (99) 126/67 (86) Pulse Ox 98 100 03/14/19 03/14/19 03/14/19 03/14/19 03:15 03:20 03:23 03:23 Pulse 88 88 88 86 Resp 12 13 13 14 B/P (MAP) 123/71 (88) Pulse Ox 93 92 93 O2 Delivery Nasal Cannula O2 Flow Rate 2.00 03/14/19 03/14/19 03/14/19 03/14/19 03:25 03:30 03:45 04:00 Temp 98.6 Pulse 91 88 92 89 Resp 8 22 14 B/P (MAP) 126/67 (86) 137/80 (99) 136/72 (93) Pulse Ox 94 93 94 O2 Delivery CPAP FiO2 30 03/14/19 03/14/19 03/14/19 03/14/19 04:15 04:22 04:22 04:30 Pulse 85 84 Resp 12 B/P (MAP) 135/74 (94) 136/72 (93) Pulse Ox 95 93 95 O2 Delivery C-Pap 03/14/19 03/14/19 03/14/19 03/14/19 04:45 05:00 05:15 05:30 Pulse 83 85 86 84 Resp 10 B/P (MAP) 130/76 (94) 133/78 (96) 139/79 (99) 139/76 (97) Pulse Ox 95 95 03/14/19 03/14/19 03/14/19 03/14/19 05:45 06:00 06:15 06:30 Pulse 83 94 90 87 Resp 5 12 12 B/P (MAP) 142/82 (102) 131/65 (87) 119/50 (73) 118/57 (77) Pulse Ox 96 95 03/14/19 03/14/19 03/14/19 03/14/19 06:45 07:00 07:15 07:30 Pulse 85 84 85 83 Resp 10 13 9 9 B/P (MAP) 112/59 (76) 114/49 (70) 110/58 (75) 116/49 (71) Pulse Ox 95 95 95 03/14/19 03/14/19 03/14/19 03/14/19 07:45 08:00 08:15 08:18 Temp 98.8 Pulse 83 82 81 Resp 11 12 10 B/P (MAP) 118/57 (77) 130/61 (84) 125/65 (85) Pulse Ox 95 96 O2 Delivery Nasal Cannula O2 Flow Rate 2.00 03/14/19 03/14/19 03/14/19 08:40 08:45 09:00 Pulse 89 89 89 Resp 17 17 17 Pulse Ox 95 95 95 O2 Delivery Nasal Cannula O2 Flow Rate 2.00 Intake and Output 03/13/19 03/13/19 03/14/19 15:00 23:00 07:00 Intake Total 917 ml Output Total 600 ml Balance 317 ml Laboratory Tests Test 03/13/19 19:10 03/13/19 19:42 03/13/19 19:58 03/13/19 20:00 White Blood Count 10.1 10^3/uL Red Blood Count 4.50 10^6/uL Hemoglobin 14.3 g/dL Hematocrit 41.0 % Mean Corpuscular Volume 91.1 fL Mean Corpuscular Hemoglobin 31.8 pg Mean Corpuscular Hemoglobin Concent 34.9 g/dL Red Cell Distribution Width 13.0 % Platelet Count 276 10^3/uL Mean Platelet Volume 10.4 fL Neutrophils (%) (Auto) 70.1 % Lymphocytes (%) (Auto) 22.7 % Monocytes (%) (Auto) 5.6 % Neutrophils # (Auto) 7.1 10^3/uL Lymphocytes # (Auto) 2.3 10^3/uL Monocytes # (Auto) 0.6 10^3/uL Absolute Immature Granulocyte (auto 0.03 10^3 u/L Absolute Eosinophils (auto) 0.1 10^3/uL Immature Granulocytes % 0.30 % Eosinophils % 0.9 % Basophils % 0.4 % Basophils # 0.0 10^3/uL Prothrombin Time 10.4 SEC Prothrombin Time INR (Non-Therap) 1.0 Activated Partial Thromboplast Time 24.3 SEC Sodium Level 137 mmol/L Potassium Level 4.1 mmol/L Chloride Level 99.0 mmol/L Carbon Dioxide Level 32.7 mmol/L Anion Gap 9.4 Blood Urea Nitrogen 5 mg/dL Creatinine 0.75 mg/dL Estimated GFR () 96.0 Est GFR (CKD-EPI)(Non-Afr [place]) 79.4 BUN/Creatinine Ratio 6.0 Glucose Level 274 mg/dL Calcium Level 8.7 mg/dL Total Bilirubin 0.3 mg/dL Aspartate Amino Transf (AST/SGOT) 25 U/L Alanine Aminotransferase (ALT/SGPT) 20 U/L Alkaline Phosphatase 91 U/L Total Creatine Kinase 736 U/L Troponin I < 0.02 ng/mL Total Protein 7.4 g/dL Albumin 3.6 g/dL Globulin 3.8 Thyroid Stimulating Hormone (TSH) 7.598 mIU/mL Urine Collection Type CCMS Urine Color YELLOW Urine Appearance SLIGHTLY CLOUDY Urine Bilirubin NEGATIVE MG/DL Urine Ketones NEGATIVE Urine Specific [place] 1.015 Urine pH 5 Urine Protein NEGATIVE Urine Urobilinogen NORMAL Urine Nitrate POSITIVE Urine Leukocyte Esterase NEGATIVE Urine Blood NEGATIVE Urine RBC 0-2 RBC/HPF Urine WBC 5-10 WBC/HPF Urine Squamous Epithelial Cells FEW #/HPF Urine Renal Epithelial Cells RARE #/HPF Urine Bacteria MANY Urine Other RARE CLUE CELLS #/HPF Urine Glucose 50 Urine Opiates Screen NEGATIVE Urine Methadone Screen NEGATIVE Urine Barbiturates Screen NEGATIVE Urine Phencyclidine Screen NEGATIVE Ur Amphetamine/Methamphetamine NEGATIVE Urine MDMA Screen (Ecstasy) NEGATIVE Urine Benzodiazepines Screen PRESUMPTIVE POSITIVE Urine Cocaine Metabolite Screen NEGATIVE Ur Tetrahydrocannabinol (THC) Scrn NEGATIVE Influenza Type A Antigen NEGATIVE Influenza B Immunofluorescence NEGATIVE Blood Gas Sample Site ABG Blood Gas pH 7.394 Blood Gas PCO2 53.3 mmHg Blood Gas PO2 44.7 mmHg Blood Gas HCO3 31.8 mmol/L Blood Gas Base Excess 5.5 mmol/L [place] Test POSITIVE Arterial Blood Oxygen Saturation 84.7 % Deoxyhemoglobin 14.0 % Carboxyhemoglobin 8.6 % Methemoglobin 0.1 % Total Hemoglobin 13.8 % Total Oxygen Concentration 15.0 % Blood Gas Temperature 37 FiO2 21 % Total Carbon Dioxide 33.5 mmol/L Lactic Acid Level 1.5 mmol/L Test 03/14/19 00:43 03/14/19 02:05 03/14/19 05:02 Bedside Glucose 165 162 White Blood Count 9.9 10^3/uL Red Blood Count 4.01 10^6/uL Hemoglobin 12.8 g/dL Hematocrit 36.8 % Mean Corpuscular Volume 91.8 fL Mean Corpuscular Hemoglobin 31.9 pg Mean Corpuscular Hemoglobin Concent 34.8 g/dL Red Cell Distribution Width 12.8 % Platelet Count 236 10^3/uL Mean Platelet Volume 10.4 fL Neutrophils (%) (Auto) 85.4 % Lymphocytes (%) (Auto) 12.1 % Monocytes (%) (Auto) 1.9 % Neutrophils # (Auto) 8.5 10^3/uL Lymphocytes # (Auto) 1.2 10^3/uL Monocytes # (Auto) 0.2 10^3/uL Absolute Immature Granulocyte (auto 0.02 10^3 u/L Absolute Eosinophils (auto) 0.0 10^3/uL Immature Granulocytes % 0.20 % Eosinophils % 0.2 % Basophils % 0.2 % Basophils # 0.0 10^3/uL Sodium Level 141 mmol/L Potassium Level 4.1 mmol/L Chloride Level 103.0 mmol/L Carbon Dioxide Level 31.0 mmol/L Anion Gap 11.1 Blood Urea Nitrogen 6 mg/dL Creatinine 0.52 mg/dL Estimated GFR () 146.6 Est GFR (CKD-EPI)(Non-Afr [place]) 121.1 BUN/Creatinine Ratio 11.0 Glucose Level 264 mg/dL Calcium Level 7.8 mg/dL Total Bilirubin 0.3 mg/dL Aspartate Amino Transf (AST/SGOT) 20 U/L Alanine Aminotransferase (ALT/SGPT) 19 U/L Alkaline Phosphatase 75 U/L Total Protein 6.6 g/dL Albumin 3.2 g/dL Globulin 3.4 Current Medications Medications (Trade) Dose Ordered Sig/Ezra PRN Reason Start Time Stop Time Status Last Admin Acetaminophen (Tylenol) 650 mg Q6HR PRN FEVER 03/13/19 23:30 04/12/19 23:29 Albuterol/ Ipratropium (Duo 0.5-3(2.5) Mg/3 ml) 3 ml RTQ6H 03/14/19 00:30 04/13/19 00:29 03/14/19 08:44 Ceftriaxone Sodium 1 gm/ Sodium Chloride 100 ml @ 100 mls/hr BID 03/14/19 09:30 04/13/19 09:29 Dextrose (Dextrose 50%-Water Syringe) 25 ml STAT PRN HYPOGLYCEMIA 03/14/19 00:00 04/13/19 00:00 Enoxaparin Sodium (Lovenox) 40 mg Q24HRS 03/14/19 00:30 04/13/19 00:29 03/14/19 01:06 Insulin Human Regular (Humulin R) Give 30 minutes before meal ACHS 03/14/19 07:30 04/13/19 07:29 03/14/19 07:57 Methylprednisolone Sodium Succinate (Solu-Medrol) 40 mg Q8HR 03/14/19 06:00 04/13/19 05:59 03/14/19 05:52 Morphine Sulfate (Morphine Sulfate) 2 mg Q4H PRN PAIN 7 - 10 03/13/19 23:30 04/12/19 23:29 03/14/19 08:39 Ondansetron HCl (Zofran 4 Mg/2 ml Vial) 4 mg Q4H PRN NAUSEA / VOMITING 03/14/19 00:30 04/13/19 00:29 Pantoprazole Sodium (Protonix) 40 mg DAILY 03/14/19 09:00 04/13/19 08:59 03/14/19 08:02 Potassium Chloride/Sodium Chloride 1,000 ml @ 50 mls/hr Q20H 03/14/19 00:30 03/14/19 01:36 Sepsis Infection Criteria Pres: None LEVEL 1 SEPSIS INFECTION CRITE: ABX Therapy, Urinary Tract Infection LEVEL 2-SIRS (LIST ALL THAT AP: None/Not assessed Cardiovascular Evidence: Not Assessed or None Hematologic Evidence: None/Not assessed Hepatic Evidence: None/Not assessed Metabolic Evidence: None/Not assessed Neurological Evidence: None/Not assessed Respiratory Evidence: Need for O2 to keep>90% Renal Evidence: None/Not assessed O2 Sat by Pulse Oximetry: 95 Oxygen Flow Rate: 2.00 Assessment/Plan Assessment/Plan Assessment/Plan 1. Urosepsis: patient symptoms much improved. Cont IV abx, f/u blood/urine cx. Transfer to medical floor today. 2. Acute on Chronic Hypercapnic respiratory failure/COPD exacerbation/VALERIE: cont CPAP at night. Cont nebs, IV steroids, O2 support PRN. Wean support as tolerated. Will complete O2 challenge prior to d/c. 3. DM with Gastroparesis: cont SSI, IV antiemetics. 4. Hypothyroidism: cont Synthroid 5. Chronic Migraines: resume home medications when patient medically stable 6. Lupus: hold home meds 2/2 sepsis 7. HTN: hold ARB 2/2 sepsis. Monitor BP closely 8. Fibromyalgia: cont home meds, Morphine PRN. 9. PPx: PPI, Lovenox YESICA LONG MD Mar 14, 2019 09:33
[2019-03-14] MEDS ORDERED: METH750T2 PO (09:38)
[2019-03-14] MEDS ORDERED: DICY10CA3 PO (09:38)
[2019-03-14] MEDS ORDERED: HYDR200T72 PO (09:38)
[2019-03-14] MEDS ORDERED: METO10TA PO (09:50)
[2019-03-14] MEDS ORDERED: ONDA8TAB15 PO (09:50)
[2019-03-14] MEDS ORDERED: PREG100C PO (09:50)
[2019-03-14] MEDS ORDERED: PRAM0.125 PO (09:50)
[2019-03-14] MEDS ORDERED: HYDR-2368 PO (09:54)
[2019-03-14] MEDS: ROCEPHIN 1 GM in NS 100ML 100 ML IV SCH ×2 (10:09→20:30)
--- NOTE | 2019-03-14 18:45 | NUR ---
REPORT RECEIVED FROM JOLIE LEÓN RN. ASSUMED PT CARE.
--- NOTE | 2019-03-14 20:48 | NUR ---
OFF UNIT: PT TRANSFERRED OFF UNIT VIA WHEELCHAIR TO [facility] ROOM 312. PT IS STABLE AND DENIES PAIN AT THIS TIME. PT ACCOMPANIED BY FAMILY MEMBERS AND CARRYING ALL PERSONAL BELONGINGS.
--- NOTE | 2019-03-14 20:59 | NUR ---
REPORT TO ZINA ARGUETA. PT CARE RELINQUISHED.
[2019-03-14] MEDS ORDERED: LANTUS SQ SCH (21:00)
[2019-03-15 00:05] VITALS: BP 140/79
[2019-03-15] MEDS: MORPHINE SULFATE IV PRN (00:12)
[2019-03-15] MEDS: LOVENOX SQ SCH (00:13)
[2019-03-15] MEDS: DUO 0.5-3(2.5) MG/3 ML IH SCH ×2 (02:53→09:00)
[2019-03-15 04:30] VITALS: BP 134/70
[2019-03-15] MEDS: SOLU-MEDROL IV SCH (05:43)
[2019-03-15 06:00] LABS: LYMPHOCYTES # 0.9 10^3/uL (1.0-4.8); LYMPHOCYTES % 6.8 % (24.0-44.0); MEAN CORP HGB 31.6 pg (26-34); MONOCYTES # 0.6 10^3/uL (0.3-0.8); MONOCYTES % 4.5 % (5.0-12.0); NEUTROPHIL # 11.4 10^3/uL (1.8-7.7); NEUTROPHILS % 88.3 % (41.0-85.0); RED CELL DISTRIBUTION WIDTH 12.7 % (11.5-14.5)
[2019-03-15 06:13] LABS: CALCIUM 8.7 mg/dL (8.4-10.5); CARBON DIOXIDE 27.1 mmol/L (20.0-32)
[2019-03-15 08:15] VITALS: BP 134/67
[2019-03-15] MEDS: HUMULIN R SQ SCH ×2 (08:22→12:34)
[2019-03-15] MEDS ORDERED: NICOTINE 14MG PATCH TD SCH (09:00)
[2019-03-15 09:24] LABS: DIFFERENTIAL COMMENT NORMAL; LYMPHOCYTE 8 % (25-36); MONOCYTE 2 % (3-9); SEGMENTED NEUTROPHILS 90 % (31-76)
[2019-03-15] MEDS: ROCEPHIN 1 GM in NS 100ML 100 ML IV SCH (09:27)
[2019-03-15] MEDS: PROTONIX PO SCH (09:27)
--- NOTE | 2019-03-15 10:50 | NUR ---
DISCHARGE PLAN CM VISITED WITH PATIENT REGARDING DISCHARGE PLAN AND GOALS. PATIENT LIVES AT HOME WITH HER SPOUSE. SHE IS INDEPENDENT OF ADLS THERE. SHE DOES HAVE A WALKER, CANE AND GLUCOMETER IN PLACE. SHE ALSO HAS CPAP THAT SHE SAID HAS NOT BEEN FUNCTIONING PROPERLY, HER CPAP IS THROUGH [facility]. CM CONTACTED [facility] TO SET UP A TIME FOR A MAILMASTER TO SERVICE HER CPAP. PER ELLIE WITH [facility] PATIENT IN BAD DEBT AND HER ACCOUNT IS INACTIVE. SHE WILL HAVE TO CONTACT [facility] DIRECTLY TO SET UP PAYMENT ARRANGEMENTS TO GET BACK ON SERVICE. HER PCP IS DR GALLO. SHE IS FINANCIALLY ABLE TO PAY FOR MEDICATIONS. SHE IS CURRENTLY ON SERVICE WITH [facility]. DISCHARGE GOAL IS FOR PATIENT TO D/C HOME BACK TO ROUTINE CARE WITH [facility] TO FOLLOW.
--- NOTE | 2019-03-15 12:30 | NUR ---
O2 O2 DC'D O2 SAT 95%
[2019-03-15 12:42] VITALS: BP 137/67
--- NOTE | 2019-03-15 12:42 | NUR ---
O2 SITTING ON EDGE OF BED EATING 02 SAT 95% WITH NO O2, DENIES SOB
--- NOTE | 2019-03-15 13:14 | NUR ---
AMBULATING PT AMBULATING IN [place], STEADY GAIT NOTED, DENIES SOB OR DIZZINESS
[2019-03-15] MEDS ORDERED: PRED20TA PO (13:56)
[2019-03-15] MEDS ORDERED: CEPH-350 PO (13:56)
[2019-03-15] MEDS ORDERED: NICO-449 TD (13:56)
--- NOTE | 2019-03-15 14:03 | PRM.DC ---
Discharge Summary Date of Discharge: Mar 15, 2019 Time of Request to Discharge: 14:50 Reason for Visit: AMS Hospital Course Patient admitted with AMS. Patient was found to be Uroseptic and in COPD exacerbation. Patient treated with IVF, IV abx, nebs, O2 support, and IV steroids. Patient was admitted to ICU first night and did not require BP support. Patient was transferred to the floor and improved slowly. Patient did have Hyperglycemia 2/2 steroid use. Patient blood cx negative. Urine cx returned and reviewed. Patient will be d/c on course of PO abx and short course of PO steroids. Patient was ambulatory without O2 support and did not become hypoxic. Patient will not require Home O2. She will continue her CPAP @ home while sleeping. D/C instructions and return precautions given. F/U with PCP and pain management within 1-2 weeks. Patient History: Patient reports no known family medical history. General: Alert, Oriented X3, Cooperative, No acute distress HEENT: Atraumatic, PERRLA, EOMI, Mucous membr. moist/pink Neck: Supple, No JVD Lungs: Clear to auscultation, Normal air movement Heart: Regular rate, Normal S1, Normal S2, No murmurs Abdomen: Normal bowel sounds, Soft, No tenderness Extremities: No edema, Normal pulses, No tenderness/swelling Skin: No rashes, No breakdown, No significant lesion Neuro: Normal gait, Normal speech, Strength at 5/5 X4 ext, Normal tone, Sensation intact, Cranial nerves 3-12 NL Psych/Mental Status: Mental status NL, Mood NL Scheduled Aspirin (Aspirin), 1 TAB PO DAILY, (Reported) Cephalexin (Keflex), 500 MG PO TID Clobetasol Propionate (Clobetasol Propionate), 50 GM TP PRN, (Reported) Diclofenac Sodium (Diclofenac Sodium), 100 GM TP PRN, (Reported) Dicyclomine Hcl (Dicyclomine Hcl), 20 MG PO QID, (Reported) Escitalopram Oxalate (Escitalopram Oxalate), 1 TAB PO DAILY, (Reported) Fluticasone Propionate (Fluticasone Propionate), 2 SPR NA DAILY, (Reported) Folic Acid (Folic Acid), 20 MG PO DAILY24, (Reported) Hydroxychloroquine Sulfate (Plaquenil), 200 MG PO BID, (Reported) Liothyronine Sodium (Liothyronine Sodium), 25 MCG PO DAILY24, (Reported) Losartan Potassium (Losartan Potassium), 50 MG PO DAILY24, (Reported) Metformin Hcl (Metformin Hcl), 1,000 MG PO BID, (Reported) Methocarbamol (Methocarbamol), 500 MG PO BID, (Reported) Metoclopramide Hcl (Metoclopramide Hcl), 10 MG PO TID, (Reported) Nabumetone (Nabumetone), 750 MG PO BID, (Reported) Naloxone HCl (Narcan), 4 MG NS PRN, (Reported) Nicotine (Nicotine Patch), 1 EACH TD DAILY Ondansetron Hcl (Ondansetron Hcl), 4 MG PO Q8HR, (Reported) Pantoprazole Sodium (Pantoprazole Sodium), 40 MG PO DAILY24, (Reported) Pramipexole Di-Hcl (Mirapex), 0.125 MG PO TID, (Reported) Prednisone (Prednisone), 20 MG PO DAILY24 Pregabalin (Lyrica), 150 MG PO TID, (Reported) Rosuvastatin 20MG (Crestor 20MG), 20 MG PO DAILY24, (Reported) Temazepam (Temazepam), 30 MG PO NOCTE, (Reported) Scheduled PRN Hydrocodone Bit/Acetaminophen (Hydrocodon-Acetaminophn 10-300), 1 TAB PO Q4 PRN for PAIN MODERATE, (Reported) Discontinued Medications Dicyclomine Hcl (Dicyclomine Hcl), 20 MG PO DAILY24, (Reported) Discontinued Reason: Prescription changed Metformin Hcl (Metformin Hcl), 1 TAB PO BID, (Reported) Discontinued Reason: Prescription changed Methocarbamol (Methocarbamol), 500 MG PO PRN, (Reported) Discontinued Reason: Prescription changed Methotrexate Sodium (Methotrexate), 25 MG IJ Q, (Reported) Discontinued Reason: Discontinue Nabumetone (Nabumetone), 750 MG PO DAILY24, (Reported) Discontinued Reason: Discontinue Ondansetron Hcl (Ondansetron Hcl), 4 MG PO Q4, (Reported) Discontinued Reason: Prescription changed Pramipexole Di-Hcl (Mirapex), 0.25 MG PO DAILY24, (Reported) Discontinued Reason: Prescription changed Pregabalin (Lyrica), 150 MG PO DAILY24, (Reported) Discontinued Reason: Prescription changed Sepsis Evaluation @ Discharge Vital Sign - Last 24 Hours 03/13/19 03/13/19 03/13/19 03/14/19 18:54 18:54 22:07 01:34 Temp 100.6 100.6 98.8 Pulse 113 113 92 86 Resp 18 18 18 19 B/P (MAP) 138/89 (105) 106/61 (76) 108/28 (54) Pulse Ox 93 93 95 92 O2 Delivery Room Air Room Air 03/14/19 03/14/19 03/14/19 03/14/19 01:34 01:35 01:45 02:00 Pulse 85 82 79 Resp 14 14 17 B/P (MAP) 106/44 (64) 115/46 (69) 116/59 (78) Pulse Ox 96 98 98 O2 Delivery Nasal Cannula O2 Flow Rate 4.00 03/14/19 03/14/19 03/14/19 03/14/19 02:15 02:30 02:46 03:00 Pulse 77 87 82 85 Resp 10 75 10 9 B/P (MAP) 109/61 (77) 116/75 (89) 136/81 (99) 126/67 (86) Pulse Ox 98 100 03/14/19 03/14/19 03/14/19 03/14/19 03:15 03:20 03:23 03:23 Pulse 88 88 88 86 Resp 12 13 13 14 B/P (MAP) 123/71 (88) Pulse Ox 93 92 93 O2 Delivery Nasal Cannula O2 Flow Rate 2.00 03/14/19 03/14/19 03/14/19 03/14/19 03:25 03:30 03:45 04:00 Temp 98.6 Pulse 91 88 92 89 Resp 8 22 14 B/P (MAP) 126/67 (86) 137/80 (99) 136/72 (93) Pulse Ox 94 93 94 O2 Delivery CPAP FiO2 30 03/14/19 03/14/19 03/14/19 03/14/19 04:15 04:22 04:22 04:30 Pulse 85 84 Resp 12 B/P (MAP) 135/74 (94) 136/72 (93) Pulse Ox 95 93 95 O2 Delivery C-Pap 03/14/19 03/14/19 03/14/19 03/14/19 04:45 05:00 05:15 05:30 Pulse 83 85 86 84 Resp 10 B/P (MAP) 130/76 (94) 133/78 (96) 139/79 (99) 139/76 (97) Pulse Ox 95 95 03/14/19 03/14/19 03/14/19 03/14/19 05:45 06:00 06:15 06:30 Pulse 83 94 90 87 Resp 5 12 12 B/P (MAP) 142/82 (102) 131/65 (87) 119/50 (73) 118/57 (77) Pulse Ox 96 95 03/14/19 03/14/19 03/14/19 03/14/19 06:45 07:00 07:15 07:30 Pulse 85 84 85 83 Resp 10 13 9 9 B/P (MAP) 112/59 (76) 114/49 (70) 110/58 (75) 116/49 (71) Pulse Ox 95 95 95 03/14/19 03/14/19 03/14/19 03/14/19 07:45 08:00 08:15 08:18 Temp 98.8 Pulse 83 82 81 Resp 11 12 10 B/P (MAP) 118/57 (77) 130/61 (84) 125/65 (85) Pulse Ox 95 96 O2 Delivery Nasal Cannula O2 Flow Rate 2.00 03/14/19 03/14/19 03/14/19 08:40 08:45 09:00 Pulse 89 89 89 Resp 17 17 17 Pulse Ox 95 95 95 O2 Delivery Nasal Cannula O2 Flow Rate 2.00 Intake and Output 03/13/19 03/13/19 03/14/19 15:00 23:00 07:00 Intake Total 917 ml Output Total 600 ml Balance 317 ml Laboratory Tests Test 03/13/19 19:10 03/13/19 19:42 03/13/19 19:58 03/13/19 20:00 White Blood Count 10.1 10^3/uL Red Blood Count 4.50 10^6/uL Hemoglobin 14.3 g/dL Hematocrit 41.0 % Mean Corpuscular Volume 91.1 fL Mean Corpuscular Hemoglobin 31.8 pg Mean Corpuscular Hemoglobin Concent 34.9 g/dL Red Cell Distribution Width 13.0 % Platelet Count 276 10^3/uL Mean Platelet Volume 10.4 fL Neutrophils (%) (Auto) 70.1 % Lymphocytes (%) (Auto) 22.7 % Monocytes (%) (Auto) 5.6 % Neutrophils # (Auto) 7.1 10^3/uL Lymphocytes # (Auto) 2.3 10^3/uL Monocytes # (Auto) 0.6 10^3/uL Absolute Immature Granulocyte (auto 0.03 10^3 u/L Absolute Eosinophils (auto) 0.1 10^3/uL Immature Granulocytes % 0.30 % Eosinophils % 0.9 % Basophils % 0.4 % Basophils # 0.0 10^3/uL Prothrombin Time 10.4 SEC Prothrombin Time INR (Non-Therap) 1.0 Activated Partial Thromboplast Time 24.3 SEC Sodium Level 137 mmol/L Potassium Level 4.1 mmol/L Chloride Level 99.0 mmol/L Carbon Dioxide Level 32.7 mmol/L Anion Gap 9.4 Blood Urea Nitrogen 5 mg/dL Creatinine 0.75 mg/dL Estimated GFR () 96.0 Est GFR (CKD-EPI)(Non-Afr Maldivian) 79.4 BUN/Creatinine Ratio 6.0 Glucose Level 274 mg/dL Calcium Level 8.7 mg/dL Total Bilirubin 0.3 mg/dL Aspartate Amino Transf (AST/SGOT) 25 U/L Alanine Aminotransferase (ALT/SGPT) 20 U/L Alkaline Phosphatase 91 U/L Total Creatine Kinase 736 U/L Troponin I < 0.02 ng/mL Total Protein 7.4 g/dL Albumin 3.6 g/dL Globulin 3.8 Thyroid Stimulating Hormone (TSH) 7.598 mIU/mL Urine Collection Type CCMS Urine Color YELLOW Urine Appearance SLIGHTLY CLOUDY Urine Bilirubin NEGATIVE MG/DL Urine Ketones NEGATIVE Urine Specific [place] 1.015 Urine pH 5 Urine Protein NEGATIVE Urine Urobilinogen NORMAL Urine Nitrate POSITIVE Urine Leukocyte Esterase NEGATIVE Urine Blood NEGATIVE Urine RBC 0-2 RBC/HPF Urine WBC 5-10 WBC/HPF Urine Squamous Epithelial Cells FEW #/HPF Urine Renal Epithelial Cells RARE #/HPF Urine Bacteria MANY Urine Other RARE CLUE CELLS #/HPF Urine Glucose 50 Urine Opiates Screen NEGATIVE Urine Methadone Screen NEGATIVE Urine Barbiturates Screen NEGATIVE Urine Phencyclidine Screen NEGATIVE Ur Amphetamine/Methamphetamine NEGATIVE Urine MDMA Screen (Ecstasy) NEGATIVE Urine Benzodiazepines Screen PRESUMPTIVE POSITIVE Urine Cocaine Metabolite Screen NEGATIVE Ur Tetrahydrocannabinol (THC) Scrn NEGATIVE Influenza Type A Antigen NEGATIVE Influenza B Immunofluorescence NEGATIVE Blood Gas Sample Site ABG Blood Gas pH 7.394 Blood Gas PCO2 53.3 mmHg Blood Gas PO2 44.7 mmHg Blood Gas HCO3 31.8 mmol/L Blood Gas Base Excess 5.5 mmol/L [place] Test POSITIVE Arterial Blood Oxygen Saturation 84.7 % Deoxyhemoglobin 14.0 % Carboxyhemoglobin 8.6 % Methemoglobin 0.1 % Total Hemoglobin 13.8 % Total Oxygen Concentration 15.0 % Blood Gas Temperature 37 FiO2 21 % Total Carbon Dioxide 33.5 mmol/L Lactic Acid Level 1.5 mmol/L Test 03/14/19 00:43 03/14/19 02:05 03/14/19 05:02 Bedside Glucose 165 162 White Blood Count 9.9 10^3/uL Red Blood Count 4.01 10^6/uL Hemoglobin 12.8 g/dL Hematocrit 36.8 % Mean Corpuscular Volume 91.8 fL Mean Corpuscular Hemoglobin 31.9 pg Mean Corpuscular Hemoglobin Concent 34.8 g/dL Red Cell Distribution Width 12.8 % Platelet Count 236 10^3/uL Mean Platelet Volume 10.4 fL Neutrophils (%) (Auto) 85.4 % Lymphocytes (%) (Auto) 12.1 % Monocytes (%) (Auto) 1.9 % Neutrophils # (Auto) 8.5 10^3/uL Lymphocytes # (Auto) 1.2 10^3/uL Monocytes # (Auto) 0.2 10^3/uL Absolute Immature Granulocyte (auto 0.02 10^3 u/L Absolute Eosinophils (auto) 0.0 10^3/uL Immature Granulocytes % 0.20 % Eosinophils % 0.2 % Basophils % 0.2 % Basophils # 0.0 10^3/uL Sodium Level 141 mmol/L Potassium Level 4.1 mmol/L Chloride Level 103.0 mmol/L Carbon Dioxide Level 31.0 mmol/L Anion Gap 11.1 Blood Urea Nitrogen 6 mg/dL Creatinine 0.52 mg/dL Estimated GFR () 146.6 Est GFR (CKD-EPI)(Non-Afr Maldivian) 121.1 BUN/Creatinine Ratio 11.0 Glucose Level 264 mg/dL Calcium Level 7.8 mg/dL Total Bilirubin 0.3 mg/dL Aspartate Amino Transf (AST/SGOT) 20 U/L Alanine Aminotransferase (ALT/SGPT) 19 U/L Alkaline Phosphatase 75 U/L Total Protein 6.6 g/dL Albumin 3.2 g/dL Globulin 3.4 Current Medications Medications (Trade) Dose Ordered Sig/Ezra PRN Reason Start Time Stop Time Status Last Admin Acetaminophen (Tylenol) 650 mg Q6HR PRN FEVER 03/13/19 23:30 04/12/19 23:29 Albuterol/ Ipratropium (Duo 0.5-3(2.5) Mg/3 ml) 3 ml RTQ6H 03/14/19 00:30 04/13/19 00:29 03/14/19 08:44 Ceftriaxone Sodium 1 gm/ Sodium Chloride 100 ml @ 100 mls/hr BID 03/14/19 09:30 04/13/19 09:29 Dextrose (Dextrose 50%-Water Syringe) 25 ml STAT PRN HYPOGLYCEMIA 03/14/19 00:00 04/13/19 00:00 Enoxaparin Sodium (Lovenox) 40 mg Q24HRS 03/14/19 00:30 04/13/19 00:29 03/14/19 01:06 Insulin Human Regular (Humulin R) Give 30 minutes before meal ACHS 03/14/19 07:30 04/13/19 07:29 03/14/19 07:57 Methylprednisolone Sodium Succinate (Solu-Medrol) 40 mg Q8HR 03/14/19 06:00 04/13/19 05:59 03/14/19 05:52 Morphine Sulfate (Morphine Sulfate) 2 mg Q4H PRN PAIN 7 - 10 03/13/19 23:30 04/12/19 23:29 03/14/19 08:39 Ondansetron HCl (Zofran 4 Mg/2 ml Vial) 4 mg Q4H PRN NAUSEA / VOMITING 03/14/19 00:30 04/13/19 00:29 Pantoprazole Sodium (Protonix) 40 mg DAILY 03/14/19 09:00 04/13/19 08:59 03/14/19 08:02 Potassium Chloride/Sodium Chloride 1,000 ml @ 50 mls/hr Q20H 03/14/19 00:30 03/14/19 01:36 Course Sepsis Screening Results: Posi: NEGATIVE Sepsis Qualifier/Stage: NO DEFINITE RISK Duration or Total Time Spent w: 60 mins Vitals & review Data Vital Sign - Last 24 Hours 03/13/19 03/13/19 03/13/19 03/14/19 18:54 18:54 22:07 01:34 Temp 100.6 100.6 98.8 Pulse 113 113 92 86 Resp 18 18 18 19 B/P (MAP) 138/89 (105) 106/61 (76) 108/28 (54) Pulse Ox 93 93 95 92 O2 Delivery Room Air Room Air 03/14/19 03/14/19 03/14/19 03/14/19 01:34 01:35 01:45 02:00 Pulse 85 82 79 Resp 14 14 17 B/P (MAP) 106/44 (64) 115/46 (69) 116/59 (78) Pulse Ox 96 98 98 O2 Delivery Nasal Cannula O2 Flow Rate 4.00 03/14/19 03/14/19 03/14/19 03/14/19 02:15 02:30 02:46 03:00 Pulse 77 87 82 85 Resp 10 75 10 9 B/P (MAP) 109/61 (77) 116/75 (89) 136/81 (99) 126/67 (86) Pulse Ox 98 100 03/14/19 03/14/19 03/14/19 03/14/19 03:15 03:20 03:23 03:23 Pulse 88 88 88 86 Resp 12 13 13 14 B/P (MAP) 123/71 (88) Pulse Ox 93 92 93 O2 Delivery Nasal Cannula O2 Flow Rate 2.00 03/14/19 03/14/19 03/14/19 03/14/19 03:25 03:30 03:45 04:00 Temp 98.6 Pulse 91 88 92 89 Resp 8 22 14 B/P (MAP) 126/67 (86) 137/80 (99) 136/72 (93) Pulse Ox 94 93 94 O2 Delivery CPAP FiO2 30 03/14/19 03/14/19 03/14/19 03/14/19 04:15 04:22 04:22 04:30 Pulse 85 84 Resp 12 B/P (MAP) 135/74 (94) 136/72 (93) Pulse Ox 95 93 95 O2 Delivery C-Pap 03/14/19 03/14/19 03/14/19 03/14/19 04:45 05:00 05:15 05:30 Pulse 83 85 86 84 Resp 10 B/P (MAP) 130/76 (94) 133/78 (96) 139/79 (99) 139/76 (97) Pulse Ox 95 95 03/14/19 03/14/19 03/14/19 03/14/19 05:45 06:00 06:15 06:30 Pulse 83 94 90 87 Resp 5 12 12 B/P (MAP) 142/82 (102) 131/65 (87) 119/50 (73) 118/57 (77) Pulse Ox 96 95 03/14/19 03/14/19 03/14/19 03/14/19 06:45 07:00 07:15 07:30 Pulse 85 84 85 83 Resp 10 13 9 9 B/P (MAP) 112/59 (76) 114/49 (70) 110/58 (75) 116/49 (71) Pulse Ox 95 95 95 03/14/19 03/14/19 03/14/19 03/14/19 07:45 08:00 08:15 08:18 Temp 98.8 Pulse 83 82 81 Resp 11 12 10 B/P (MAP) 118/57 (77) 130/61 (84) 125/65 (85) Pulse Ox 95 96 O2 Delivery Nasal Cannula O2 Flow Rate 2.00 03/14/19 03/14/19 03/14/19 08:40 08:45 09:00 Pulse 89 89 89 Resp 17 17 17 Pulse Ox 95 95 95 O2 Delivery Nasal Cannula O2 Flow Rate 2.00 Intake and Output 0 03/13/19 03/13/19 03/14/19 15:00 23:00 07:00 Intake Total 917 ml Output Total 600 ml Balance 317 ml Laboratory Tests Test 03/13/19 19:10 03/13/19 19:42 03/13/19 19:58 03/13/19 20:00 White Blood Count 10.1 10^3/uL Red Blood Count 4.50 10^6/uL Hemoglobin 14.3 g/dL Hematocrit 41.0 % Mean Corpuscular Volume 91.1 fL Mean Corpuscular Hemoglobin 31.8 pg Mean Corpuscular Hemoglobin Concent 34.9 g/dL Red Cell Distribution Width 13.0 % Platelet Count 276 10^3/uL Mean Platelet Volume 10.4 fL Neutrophils (%) (Auto) 70.1 % Lymphocytes (%) (Auto) 22.7 % Monocytes (%) (Auto) 5.6 % Neutrophils # (Auto) 7.1 10^3/uL Lymphocytes # (Auto) 2.3 10^3/uL Monocytes # (Auto) 0.6 10^3/uL Absolute Immature Granulocyte (auto 0.03 10^3 u/L Absolute Eosinophils (auto) 0.1 10^3/uL Immature Granulocytes % 0.30 % Eosinophils % 0.9 % Basophils % 0.4 % Basophils # 0.0 10^3/uL Prothrombin Time 10.4 SEC Prothrombin Time INR (Non-Therap) 1.0 Activated Partial Thromboplast Time 24.3 SEC Sodium Level 137 mmol/L Potassium Level 4.1 mmol/L Chloride Level 99.0 mmol/L Carbon Dioxide Level 32.7 mmol/L Anion Gap 9.4 Blood Urea Nitrogen 5 mg/dL Creatinine 0.75 mg/dL Estimated GFR () 96.0 Est GFR (CKD-EPI)(Non-Afr Maldivian) 79.4 BUN/Creatinine Ratio 6.0 Glucose Level 274 mg/dL Calcium Level 8.7 mg/dL Total Bilirubin 0.3 mg/dL Aspartate Amino Transf (AST/SGOT) 25 U/L Alanine Aminotransferase (ALT/SGPT) 20 U/L Alkaline Phosphatase 91 U/L Total Creatine Kinase 736 U/L Troponin I < 0.02 ng/mL Total Protein 7.4 g/dL Albumin 3.6 g/dL Globulin 3.8 Thyroid Stimulating Hormone (TSH) 7.598 mIU/mL Urine Collection Type CCMS Urine Color YELLOW Urine Appearance SLIGHTLY CLOUDY Urine Bilirubin NEGATIVE MG/DL Urine Ketones NEGATIVE Urine Specific [place] 1.015 Urine pH 5 Urine Protein NEGATIVE Urine Urobilinogen NORMAL Urine Nitrate POSITIVE Urine Leukocyte Esterase NEGATIVE Urine Blood NEGATIVE Urine RBC 0-2 RBC/HPF Urine WBC 5-10 WBC/HPF Urine Squamous Epithelial Cells FEW #/HPF Urine Renal Epithelial Cells RARE #/HPF Urine Bacteria MANY Urine Other RARE CLUE CELLS #/HPF Urine Glucose 50 Urine Opiates Screen NEGATIVE Urine Methadone Screen NEGATIVE Urine Barbiturates Screen NEGATIVE Urine Phencyclidine Screen NEGATIVE Ur Amphetamine/Methamphetamine NEGATIVE Urine MDMA Screen (Ecstasy) NEGATIVE Urine Benzodiazepines Screen PRESUMPTIVE POSITIVE Urine Cocaine Metabolite Screen NEGATIVE Ur Tetrahydrocannabinol (THC) Scrn NEGATIVE Influenza Type A Antigen NEGATIVE Influenza B Immunofluorescence NEGATIVE Blood Gas Sample Site ABG Blood Gas pH 7.394 Blood Gas PCO2 53.3 mmHg Blood Gas PO2 44.7 mmHg Blood Gas HCO3 31.8 mmol/L Blood Gas Base Excess 5.5 mmol/L [place] Test POSITIVE Arterial Blood Oxygen Saturation 84.7 % Deoxyhemoglobin 14.0 % Carboxyhemoglobin 8.6 % Methemoglobin 0.1 % Total Hemoglobin 13.8 % Total Oxygen Concentration 15.0 % Blood Gas Temperature 37 FiO2 21 % Total Carbon Dioxide 33.5 mmol/L Lactic Acid Level 1.5 mmol/L Test 03/14/19 00:43 03/14/19 02:05 03/14/19 05:02 Bedside Glucose 165 162 White Blood Count 9.9 10^3/uL Red Blood Count 4.01 10^6/uL Hemoglobin 12.8 g/dL Hematocrit 36.8 % Mean Corpuscular Volume 91.8 fL Mean Corpuscular Hemoglobin 31.9 pg Mean Corpuscular Hemoglobin Concent 34.8 g/dL Red Cell Distribution Width 12.8 % Platelet Count 236 10^3/uL Mean Platelet Volume 10.4 fL Neutrophils (%) (Auto) 85.4 % Lymphocytes (%) (Auto) 12.1 % Monocytes (%) (Auto) 1.9 % Neutrophils # (Auto) 8.5 10^3/uL Lymphocytes # (Auto) 1.2 10^3/uL Monocytes # (Auto) 0.2 10^3/uL Absolute Immature Granulocyte (auto 0.02 10^3 u/L Absolute Eosinophils (auto) 0.0 10^3/uL Immature Granulocytes % 0.20 % Eosinophils % 0.2 % Basophils % 0.2 % Basophils # 0.0 10^3/uL Sodium Level 141 mmol/L Potassium Level 4.1 mmol/L Chloride Level 103.0 mmol/L Carbon Dioxide Level 31.0 mmol/L Anion Gap 11.1 Blood Urea Nitrogen 6 mg/dL Creatinine 0.52 mg/dL Estimated GFR () 146.6 Est GFR (CKD-EPI)(Non-Afr Maldivian) 121.1 BUN/Creatinine Ratio 11.0 Glucose Level 264 mg/dL Calcium Level 7.8 mg/dL Total Bilirubin 0.3 mg/dL Aspartate Amino Transf (AST/SGOT) 20 U/L Alanine Aminotransferase (ALT/SGPT) 19 U/L Alkaline Phosphatase 75 U/L Total Protein 6.6 g/dL Albumin 3.2 g/dL Globulin 3.4 Current Medications Medications (Trade) Dose Ordered Sig/Ezra PRN Reason Start Time Stop Time Status Last Admin Acetaminophen (Tylenol) 650 mg Q6HR PRN FEVER 03/13/19 23:30 04/12/19 23:29 Albuterol/ Ipratropium (Duo 0.5-3(2.5) Mg/3 ml) 3 ml RTQ6H 03/14/19 00:30 04/13/19 00:29 03/14/19 08:44 Ceftriaxone Sodium 1 gm/ Sodium Chloride 100 ml @ 100 mls/hr BID 03/14/19 09:30 04/13/19 09:29 Dextrose (Dextrose 50%-Water Syringe) 25 ml STAT PRN HYPOGLYCEMIA 03/14/19 00:00 04/13/19 00:00 Enoxaparin Sodium (Lovenox) 40 mg Q24HRS 03/14/19 00:30 04/13/19 00:29 03/14/19 01:06 Insulin Human Regular (Humulin R) Give 30 minutes before meal ACHS 03/14/19 07:30 04/13/19 07:29 03/14/19 07:57 Methylprednisolone Sodium Succinate (Solu-Medrol) 40 mg Q8HR 03/14/19 06:00 04/13/19 05:59 03/14/19 05:52 Morphine Sulfate (Morphine Sulfate) 2 mg Q4H PRN PAIN 7 - 10 03/13/19 23:30 04/12/19 23:29 03/14/19 08:39 Ondansetron HCl (Zofran 4 Mg/2 ml Vial) 4 mg Q4H PRN NAUSEA / VOMITING 03/14/19 00:30 04/13/19 00:29 Pantoprazole Sodium (Protonix) 40 mg DAILY 03/14/19 09:00 04/13/19 08:59 03/14/19 08:02 Potassium Chloride/Sodium Chloride 1,000 ml @ 50 mls/hr Q20H 03/14/19 00:30 03/14/19 01:36 Sepsis Infection Criteria Pres: None LEVEL 1 SEPSIS INFECTION CRITE: ABX Therapy LEVEL 2-SIRS (LIST ALL THAT AP: None/Not assessed Cardiovascular Evidence: Not Assessed or None Hematologic Evidence: None/Not assessed Hepatic Evidence: None/Not assessed Metabolic Evidence: None/Not assessed Neurological Evidence: None/Not assessed Respiratory Evidence: Need for O2 to keep>90% Renal Evidence: None/Not assessed O2 Sat by Pulse Oximetry: 95 Oxygen Flow Rate: 2.00 Plan Discharge Date: Mar 15, 2019 Dicharge DX: Urosepsis, COPD exacerbation Discharge Disposition: Stable Plan ok to d/c to home self care medications: per med rec list Diet: ADA Activity as tolerated F/U with PCP/Pain specialist in 1-2 weeks Return to care for worsening/concerning symptoms YESICA LONG MD Mar 15, 2019 14:03
[2019-03-15 15:18] VITALS: BP 137/67
--- NOTE | 2019-03-15 15:18 | NUR ---
DISCHARGE SALINE LOCK DC'D, SITE CLEAR, DISCHARGE INSTRUCTIONS GIVEN AND QUESTIONS ANSWERED. VOICED UNDERSTANDING, DECLINED W/C. AMBULATED OFF UNIT ON OWN ACCORD ACCOMPANIED BY THIS NURSE, TO PRIVATE VEHICLE IN APPARENT STABLE CONDITION,
[2019-03-21 21:59] LABS: NORDIAZEPAM NEGATIVE
[2019-03-21 22:00] LABS: OH-ALPRAZOLAM NEGATIVE; OXAZEPAM POSITIVE
== END 2019-03-15 15:18 | disposition home health service (06) | DRG 871 ==
LOC: ER 18:28 → MS 22:10 → ICU 23:59 → MS 03-14 20:48
PROVIDERS: ADMIT Family Medicine; ATTEND Family Medicine
PROC: 5A09357 Assistance with Respiratory Ventilation, Less than 24 Consecutive Hours, Continuous Positive Airway Pressure (ICD-10-PCS; principal; 2019-03-14)
PROC: 5A09357 Assistance with Respiratory Ventilation, Less than 24 Consecutive Hours, Continuous Positive Airway Pressure (ICD-10-PCS; 2019-03-15)
DX: A41.9 Sepsis, unspecified organism (principal); J96.21 Acute and chronic respiratory failure with hypoxia; J96.22 Acute and chronic respiratory failure with hypercapnia; N39.0 Urinary tract infection, site not specified; J44.1 Chronic obstructive pulmonary disease with (acute) exacerbation; E11.43 Type 2 diabetes mellitus with diabetic autonomic (poly)neuropathy; E11.65 Type 2 diabetes mellitus with hyperglycemia; T38.0X5A Adverse effect of glucocorticoids and synthetic analogues, initial encounter; E78.00 Pure hypercholesterolemia, unspecified; E78.5 Hyperlipidemia, unspecified; E89.0 Postprocedural hypothyroidism; F17.210 Nicotine dependence, cigarettes, uncomplicated; G43.909 Migraine, unspecified, not intractable, without status migrainosus; G47.33 Obstructive sleep apnea (adult) (pediatric); G89.29 Other chronic pain; I10 Essential (primary) hypertension; K31.84 Gastroparesis; M79.7 Fibromyalgia; K21.9 Gastro-esophageal reflux disease without esophagitis; M25.552 Pain in left hip; Z79.82 Long term (current) use of aspirin; Y92.89 Other specified places as the place of occurrence of the external cause; Z90.722 Acquired absence of ovaries, bilateral
CPT/HCPCS: 36415; 70450; 71045; 80053; 80307; 81000; 82550; 82803; 82948; 83605; 84443; 84484; 85025; 85610; 85730; 87040; 87077; 87086; 87186; 87804; 93005; 94640; 94660; 99285; G0378; J0696; J1650; J1815; J2270; J2920; J3490; J7030; J7050; J7620; J0692

== ENCOUNTER → 2019-03-30 | Outpatient (CLI) | payer MEDICARE ==
[~2019-03-30] MED LIST: ASPI-667 PO; CEPH-350 PO; CLOB50FO TP; DICL100G29 TP; DICY10CA3 PO; DICY20TA3 PO; ESCI20TA PO; FLUT16SP; FOLI20CA PO; HYDR-2368 PO; HYDR200T5 PO; HYDR200T72 PO; LIOT25TA4 PO; LOSA50TA14 PO; METF10007 PO; METF500T17 PO; METH25VI22 IJ; METH500T7 PO; METH750T2 PO; METO10TA PO; METO10TA83 PO; NABU750T PO; NALO4SPR NS; NICO-449 TD; ONDA-87 PO; ONDA8TAB18 PO; PANT40TA5 PO; PRAM0.125 PO; PRAM0.255 PO; PRED20TA PO; PREG100C PO; PREG150C PO; ROSU20TA2 PO; TEMA30CA PO
[2019-03-30 12:32] LABS: BASOPHIL # 0.1 10^3/uL (0.0-0.1); BASOPHIL % 0.7 % (0.0-0.2); EOSINOPHIL # 0.2 10^3/uL (0.0-0.2); EOSINOPHIL % 2.2 % (0.0-5.0); LYMPHOCYTES # 3.41 10^3/uL1 (1.0-4.8); LYMPHOCYTES % 47.9 % (24.0-44.0); MEAN CORP HGB 31.6 pg (26-34); MONOCYTES # 0.6 10^3/uL (0.3-0.8); MONOCYTES % 8.7 % (5.0-12.0); NEUTROPHIL # 2.9 10^3/uL (1.8-7.7); NEUTROPHILS % 40.4 % (41.0-85.0); PLATELET COUNT 203 10^3/uL (150-400); RED CELL DISTRIBUTION WIDTH 12.7 % (11.5-14.5)
[2019-03-30 13:13] LABS: CALCIUM 8.9 mg/dL (8.4-10.5); CARBON DIOXIDE 33.3 mmol/L (20.0-32)
== END | disposition home or self-care (01) ==
LOC: LAB 12:07
PROVIDERS: ATTEND Internal Medicine
DX: E11.40 Type 2 diabetes mellitus with diabetic neuropathy, unspecified (principal); I10 Essential (primary) hypertension
CPT/HCPCS: 36415; 80053; 84443; 85025

== ENCOUNTER → 2019-08-18 | Outpatient (CLI) | payer MEDICARE ==
[2019-08-18 13:00] LABS: BASOPHIL % 0.4 % (0.0-0.2); EOSINOPHIL % 0.4 % (0.0-5.0); LYMPHOCYTES # 1.59 10^3/uL1 (1.0-4.8); LYMPHOCYTES % 14.1 % (24.0-44.0); MEAN CORP HGB 32.1 pg (26-34); MONOCYTES # 0.4 10^3/uL (0.3-0.8); MONOCYTES % 3.3 % (5.0-12.0); NEUTROPHIL # 9.2 10^3/uL (1.8-7.7); NEUTROPHILS % 81.4 % (41.0-85.0); PLATELET COUNT 168 10^3/uL (150-400); RED CELL DISTRIBUTION WIDTH 12.1 % (11.5-14.5)
[2019-08-18 13:37] LABS: CALCIUM 8.9 mg/dL (8.4-10.5); CARBON DIOXIDE 32.2 mmol/L (20.0-32)
--- NOTE | 2019-08-18 16:49 | DIREP ---
PROCEDURE:Digital Screening Mammogram TECHNIQUE:MLO, CC, XCCL, and cleavage digital images of each breast are provided. Computer Assisted Detection (CAD) was utilized. COMPARISON:[facility], , MAMMO BILATERAL SCREENING, 01/17/2016, 02:23 PM. INDICATIONS:SCREENING MAMMO BREAST COMPOSITION:The breasts are almost entirely fatty. FINDINGS:There are no grouped microcalcifications, masses, or architectural distortions to suggest malignancy. There is no significant change as compared with the previous examination(s). IMPRESSION:No mammographic evidence of malignancy. RECOMMENDATIONS:Routine Screening Mammography per [employer] guidelines. OVERALL FINAL ASSESSMENT:BI-RADS 1 - Negative Mammogram Note: This facility participates in a mammography screening patient reminder system. Dictated by: Gael Persaud III, MD on 08/18/2019 at 04:45 PM
[2019-08-19 07:00] LABS: COMPLEMENT C4 34 mg/dL (14-44)
== END | disposition home or self-care (01) ==
LOC: RAD 12:07
PROVIDERS: ATTEND Internal Medicine
DX: Z12.31 Encounter for screening mammogram for malignant neoplasm of breast (principal); I10 Essential (primary) hypertension; N39.0 Urinary tract infection, site not specified; E11.40 Type 2 diabetes mellitus with diabetic neuropathy, unspecified; E03.9 Hypothyroidism, unspecified; M19.91 Primary osteoarthritis, unspecified site
CPT/HCPCS: 36415; 77067; 80053; 80061; 83036; 84443; 85025; 86160; 86162

== ENCOUNTER → 2020-03-28 | Outpatient (CLI) | payer MEDICARE ==
[~2020-03-28] MED LIST changes: -ESCI20TA PO; +ESCI20TA5 PO; -HYDR-2368 PO; -NABU750T PO; +NABU750T7 PO; -PANT40TA5 PO; +PANT40TA6 PO; +[UNRECOGNIZED DRUG - CODE] PO
== END | disposition home or self-care (01) ==
LOC: NPLAB 15:27
PROVIDERS: ATTEND Internal Medicine
DX: R06.02 Shortness of breath (principal); Z20.822 Contact with and (suspected) exposure to COVID-19
CPT/HCPCS: 87426; 87635

== ENCOUNTER → 2020-08-23 | Outpatient (CLI) | payer MEDICARE ==
[~2020-08-23] MED LIST changes: -ESCI20TA5 PO; +ESCI20TA8 PO; +METH-621 PO; +METH-622 PO; -METH500T7 PO; -METH750T2 PO; +NABU750T11 PO; -NABU750T7 PO
== END | disposition home or self-care (01) ==
LOC: NPLAB 08:55
PROVIDERS: ATTEND Internal Medicine
DX: E11.40 Type 2 diabetes mellitus with diabetic neuropathy, unspecified (principal)
CPT/HCPCS: 83036

== ENCOUNTER → 2021-06-20 | Outpatient (CLI) | payer MEDICARE ==
[~2021-06-20] MED LIST changes: +DICY20TA PO; -DICY20TA3 PO; -ONDA8TAB18 PO; +[UNRECOGNIZED DRUG - CODE] PO
[2021-06-20 19:36] LABS: BILIRUBIN,URINE NEGATIVE (NEGATIVE); UROBILINOGEN,URINE 0.2 E.U./dL (0.2)
== END | disposition home or self-care (01) ==
LOC: NPLAB 19:18
PROVIDERS: ATTEND Internal Medicine
DX: N39.0 Urinary tract infection, site not specified (principal)
CPT/HCPCS: 81003

== ENCOUNTER 2021-08-18 13:49 | Emergency (ER) | payer MEDICARE ==
[~2021-08-18] VITALS: Ht 152.4 cm; Wt 63.5 kg
[2021-08-18 13:49] VITALS: BP 137/78
--- NOTE | 2021-08-18 13:49 | NUR ---
ARRIVAL PT PRESENTS TO THE ED VIA AMBULATORY WITH C/O SORE THROAT, COUGH, CONGESTION, AND VOMITING FOR A COUPLE DAYS. PT IS ON HOSPICE FOR HEART FAILURE, PT STATES THE HOSPICE NURSE TOLD HER SHE NEEDED TO COME GET CHECKED OUT. PT VITALS OBTAINED, PT IS STABLE, NOTIFIED OF PT ARRIVAL.
--- NOTE | 2021-08-18 14:08 | ER.PDOC ---
General Chief Complaint: Requesting Medical Care Stated Complaint: ST,COUGH/CONGESTION,SOB,N/V Time seen by MD: 14:08 Source: patient, family Exam Limitations: no limitations History of Present Illness Initial Comments Patient who is on home hospice for congestive heart failure presents with family complaining of generalized weakness, decreased appetite, difficulty and painful swallowing due to sore throat for the past 4 days. At this time denies any chest pain or complaints and in no acute distress. Severity: mild Associated Symptoms: sore throat Allergies: Coded Allergies: No Known Allergies (Unverified , 09/26/15) Home Meds Active Scripts Nicotine (NICOTINE PATCH) 1 Each Patch.td24, 1 EACH TD DAILY for 30 Days, #30 PATCH 0 Refills Prov:YESICA LONG MD 03/15/19 Cephalexin (KEFLEX) 500 Mg Capsule, 500 MG PO TID for 5 Days, #15 TAB 0 Refills Prov:YESICA LONG MD 03/15/19 Prednisone (PREDNISONE) 20 Mg Tablet, 20 MG PO DAILY24 for 3 Days, #3 TAB 0 Refills Prov:YESICA LONG MD 03/15/19 Reported Medications Hydrocodone Bit/Acetaminophen (HYDROCODON-ACETAMINOPHN 10-300) 1 Each Tablet, 1 TAB PO Q4 PRN for PAIN MODERATE MDD 4 Tablet(s) for 30 Days, #180 TAB 0 Refills 03/14/19 Metoclopramide Hcl (METOCLOPRAMIDE HCL) 10 Mg Tablet, 10 MG PO TID, #30 TAB 03/14/19 Pramipexole Di-Hcl (MIRAPEX) 0.125 Mg Tablet, 0.125 MG PO TID, #30 TAB 03/14/19 Pregabalin (LYRICA) 100 Mg Capsule, 150 MG PO TID, CAPSULE 03/14/19 Ondansetron Hcl (ONDANSETRON HCL) 8 Mg Tablet, 4 MG PO Q8HR, #30 TAB 03/14/19 Dicyclomine Hcl (DICYCLOMINE HCL) 10 Mg Capsule, 20 MG PO QID, #30 CAPSULE 03/14/19 Hydroxychloroquine Sulfate (PLAQUENIL) 200 Mg Tablet, 200 MG PO BID, #30 TAB 03/14/19 Methocarbamol (METHOCARBAMOL) 750 Mg Tablet, 500 MG PO BID, #30 TAB 03/14/19 Metformin Hcl (METFORMIN HCL) 1,000 Mg Tablet, 1000 MG PO BID, #30 TAB 03/14/19 Aspirin (ASPIRIN) 81 Mg Tab.chew, 1 TAB PO DAILY, #30 TAB 3 Refills 03/14/19 Fluticasone Propionate (FLUTICASONE PROPIONATE) 16 Gm [place].susp, 2 SPR NA DAILY, #1 INHALER 3 Refills 03/14/19 Clobetasol Propionate (CLOBETASOL PROPIONATE) 50 Gm Foam, 50 GM TP PRN, GM 03/14/19 Diclofenac Sodium (Diclofenac Sodium) 1 % Gel..gram., 100 GM TP PRN, TUBE 03/14/19 Naloxone HCl (Narcan) 4 Mg/Actuation [place], 4 MG NS PRN, SPRAYS 03/14/19 Folic Acid (FOLIC ACID) 20 Mg Capsule, 20 MG PO DAILY24, CAPSULE 03/14/19 Temazepam (TEMAZEPAM) 30 Mg Capsule, 30 MG PO NOCTE, CAPSULE 03/14/19 Rosuvastatin 20MG (CRESTOR 20MG) 20 Mg Tablet, 20 MG PO DAILY24, TAB 03/14/19 Losartan Potassium (LOSARTAN POTASSIUM) 50 Mg Tablet, 50 MG PO DAILY24, TAB 03/14/19 Nabumetone (NABUMETONE) 750 Mg Tablet, 750 MG PO BID, TAB 03/14/19 Escitalopram Oxalate (ESCITALOPRAM OXALATE) 20 Mg Tablet, 1 TAB PO DAILY, #30 TAB 5 Refills 03/14/19 Liothyronine Sodium (LIOTHYRONINE SODIUM) 25 Mcg Tablet, 25 MCG PO DAILY24, TAB 03/14/19 Pantoprazole Sodium (PANTOPRAZOLE SODIUM) 40 Mg Tablet.dr, 40 MG PO DAILY24 03/14/19 Constitutional: denies chills, denies fever; malaise; denies weakness EENTM: denies eye pain, denies blurred vision; nose congestion, throat pain Respiratory: cough; denies shortness of breath; SOB with exertion; denies SOB at rest Cardiovascular: denies chest pain, denies lightheadedness Gastrointestinal: denies abdomen distended, denies abdominal pain, denies nausea, denies vomiting Genitourinary: denies dysuria Musculoskeletal: denies back pain Skin: denies change in color Psychiatric/Neurological: denies headache All Other Systems: Reviewed and Negative Past Medical History Medical History: cancer, diabetes, fibromyalgia, high cholesterol, hypertension, thyroid disease, other Surgical History: other Social History Drug Use: none Physical Exam General Appearance: alert, no distress Eye: eyes nml inspection, lids & conjunct. nml, PERRL, no nystagmus Ear: ear nml Nose: nose nml Throat: airway nml, mouth ulceration (left and right buccal region with slight white pathches), tonsillar edudate (? plaque vs thrush in left side oropharyngeal cavity) Neck: nml inspection, supple Respiratory: no resp.distress, breath sounds nml Abdomen: non-tender, no organomegaly CVS: reg rate & rhythm, heart sounds nml Skin: warm/dry (normal color) Extremities: non-tender, nml ROM, no pedal edema NEURO/PSYCH: oriented x 3, CN's nml as tested, motor nml, sensation nml, mood/affect nml Results/Orders Results/Orders Orders - KIKE DAS MD Covid19 Antigen Clary Sue (08/18/21 14:12) Influenza A&B (08/18/21 14:12) Strep Screen (08/18/21 14:12) Dexamethasone (Decadron) (08/18/21 14:38) Dexamethasone (Decadron) (08/18/21 14:45) Vital Signs Date Time Temp Pulse Resp B/P (MAP) Pulse Ox O2 Delivery O2 Flow Rate FiO2 08/18/21 13:49 99.2 96 16 95 08/18/21 13:49 99.2 96 16 137/78 (97) 95 Room Air* 0 21 08/18/21 13:49 99.2 96 16 Administered Medications Medications (Trade) Dose Ordered Sig/Ezra Route PRN Reason Start Time Stop Time Status Last Admin Dose Admin Dexamethasone (Decadron) 6 mg STAT STAT PO 08/18/21 14:38 08/18/21 14:41 DC 08/18/21 14:47 6 MG Laboratory Tests Test 08/18/21 14:03 Influenza Type A Antigen NEGATIVE (NEG) Influenza Type B Antigen NEGATIVE (NEG) SARS-CoV-2 Antigen (Rapid) POSITIVE (NEGATIVE) *A Group A Streptococcus Screen NEGATIVE (NEGATIVE) Progress Progress Patient with COVID on home hospice with no supplemental oxygen requirement, afebrile, SaO2 98% on room air we will manage patient as an outpatient. We will advise her to continue with Zithromax prescribed to her on 08/15/2021. Take Vitamins C 1000mg by mouth 3 times daily for 7 days. Zinc 50mg tablets daily for 7 days. Continue Zithromax as prescribed. Phototherapy (sunlight) for 2 hrs daily. Follow up with your PCP or return to the ER if your symptoms worsens. ER DEPART Departure Time of Disposition: 15:16 Disposition: 01 HOME / SELF CARE / HOMELESS Impression: Primary Impression: Upper respiratory tract infection due to COVID-19 virus Additional Impression: Thrush Condition: Stable Referrals: VIDHI GALLO MD (PCP) PRIMARY CARE PROVIDER Duration or Time Spent with Pa: 20 mins Problem Qualifiers KIKE DAS MD Aug 18, 2021 14:08
[2021-08-18] MEDS ORDERED: DECADRON PO STA (14:38)
[2021-08-18] MEDS ORDERED: DECADRON ONE (14:45)
== END 2021-08-18 15:16 | disposition home or self-care (01) ==
LOC: ER 13:49
DX: U07.1 COVID-19 (principal); J06.9 Acute upper respiratory infection, unspecified; B37.9 Candidiasis, unspecified; R13.10 Dysphagia, unspecified; E07.9 Disorder of thyroid, unspecified; E11.9 Type 2 diabetes mellitus without complications; E78.00 Pure hypercholesterolemia, unspecified; I11.0 Hypertensive heart disease with heart failure; I50.9 Heart failure, unspecified; M79.7 Fibromyalgia
CPT/HCPCS: 87070; 87426; 87804 ×2; 87880; 99283; J8540

== ENCOUNTER → 2021-12-11 | Outpatient (CLI) | payer MEDICARE ==
[2021-12-11 12:55] LABS: BILIRUBIN,URINE NEGATIVE (NEGATIVE); UROBILINOGEN,URINE 0.2 E.U./dL (0.2)
[2021-12-11 13:01] LABS: YEAST,URINE MODERATE (NONE SEEN)
== END | disposition home or self-care (01) ==
LOC: NPLAB 12:31
PROVIDERS: ATTEND Internal Medicine
DX: I11.0 Hypertensive heart disease with heart failure (principal); Z79.899 Other long term (current) drug therapy
CPT/HCPCS: 81001; 87086; 87186